=== PATIENT | female | born 1985 | race Caucasian/White ===

== ENCOUNTER 2016-12-10 21:15 | Emergency (ER) | payer OTHER ==
[2016-12-10 21:24] VITALS: BP 115/63; PULSE 72; TEMP 98.2; BMI 24.4
--- NOTE | 2016-12-10 22:00 | PDOC ---
History of Present Illness <Don Cruz - Last Filed: 12/10/16 23:21> - General History Source: Patient Exam Limitations: No Limitations - History of Present Illness Initial Comments: 12/10/16 23:46 The patient is a 31 year old female, with a significant past medical history of asthma, who presents to the emergency department with chest tightness since yesterday. She describes her chest pain as a tightness, ranging from mild to moderate, with a tingling radiation to her left arm. She notes that the pain is consistent with her asthma. She also reports wheezing and mild abdominal pain associated with her chief complaints. She denies cough, leg swelling, hemoptysis or exertional chest pain. She states that she came to the ED for evaluation in fear of a heart attack. The patient denies weakness, numbness, shortness of breath, headache and dizziness. Denies fever, chills, nausea, vomit, diarrhea and constipation. Denies dysuria, frequency, urgency and hematuria. Allergies: Penicillins Past surgical history: Gastric sleeve Social history: No alcohol, tobacco or drug use reported <Jose Guadalupe Cazares - Last Filed: 12/10/16 23:47> - General Chief Complaint: Asthma Stated Complaint: ASTHMA/SOB/LT ARM NUMB/CHEST PAIN Time Seen by Provider: 12/10/16 21:56 Past History - Past Medical History Anemia: No Asthma: Yes Cancer: No Cardiac Disorders: No CVA: No COPD: No CHF: No Dementia: No Diabetes: No GI Disorders: No Disorders: No HTN: No Hypercholesterolemia: No Liver Disease: No Seizures: No Thyroid Disease: No - Surgical History Abdominal Surgery: Yes Appendectomy: No Cardiac Surgery: No Cholecystectomy: No GI Surgery: Yes (GASTRIC SLEEVE) Lung Surgery: No Neurologic Surgery: No Orthopedic Surgery: No - Reproductive History Cervical CA: No Ectopic : No Polycystic Ovaries: No Spontaneous : 5 - Psycho/Social/Smoking Cessation Hx Anxiety: No Suicidal Ideation: No Smoking Status: No Smoking History: Never smoked Have you smoked in the past 12 months: No Number of Cigarettes Smoked Daily: 0 Hx Alcohol Use: No Drug/Substance Use Hx: No Substance Use Type: None Hx Substance Use Treatment: No <Don Cruz - Last Filed: 12/10/16 23:21> <Jose Guadalupe Cazares - Last Filed: 12/10/16 23:47> - Past Medical History Allergies/Adverse Reactions: Allergies Allergy/AdvReac Type Severity Reaction Status Date / Time shellfish derived Allergy Mild Verified 08/01/16 15:45 Penicillins Allergy Swelling Verified 08/01/16 15:45 Home Medications: Ambulatory Orders Montelukast Na [Singulair -] 10 mg PO HS 06/18/14 Ibuprofen [Motrin -] 800 mg PO TID #30 tablet 09/24/15 Tamsulosin HCl [Flomax] 0.4 mg PO DAILY #3 capsule 09/24/15 Prednisone [Deltasone -] 40 mg PO DAILY #8 tablet 12/10/16 Review of Systems - Review of Systems Able to Perform ROS?: Yes Comments:: 12/10/16 23:46 CONSTITUTIONAL: No reported: Fever, Chills, Diaphoresis, Generalized Weakness, Malaise, Loss of Appetite HEENT: No reported: Rhinorrhea, Nasal Congestion, Throat Pain, Throat Swelling, Difficulty Swallowing, Mouth Swelling, Ear Pain, Eye Pain, Visual Changes CARDIOVASCULAR: Reported: Chest pain. No reported: Syncope, Palpitations, Irregular Heart Rate, Lightheadedness, Peripheral Edema RESPIRATORY: Reported: Wheezing. No reported: Cough, Shortness of Breath, SOB with Exertion, Orthopnea, Stridor, Hemoptysis GASTROINTESTINAL: Reported: Abdominal pain. No reported: Abdominal Distension, Nausea, Vomiting, Diarrhea, Constipation, Melena, Hematochezia GENITOURINARY: No reported: Dysuria, Frequency, Urgency, Hesitancy, Flank Pain, Genital Pain MUSCULOSKELETAL: No reported: Myalgia, Arthralgia, Joint Swelling, Back pain, Neck Pain SKIN: No reported: Rash, Itching, Pallor HEMEATOLOGIC/IMMUNOLOGIC: No reported: Easy Bleeding, Easy Bruising, Lymphadenopathy, Frequent infections ENDOCRINE: No reported: Unexplained Weight Gain, Unexplained Weight Loss, Heat Intolerance , Cold Intolerance NEUROLOGIC: No reported: Headache, Focal Weakness, Paresthesias, Vertigo, Lightheadedness, Unsteady Gait, Seizure, Mental Status Changes, Incontinence PSYCHIATRIC: No reported: Anxiety, Depression <Jose Guadalupe Cazares - Last Filed: 12/10/16 23:47> *Physical Exam - Vital Signs Last Vital Signs Temp Pulse Resp BP Pulse Ox 98.2 F 72 20 115/63 97 12/10/16 21:22 12/10/16 21:22 12/10/16 21:22 12/10/16 21:22 12/10/16 21:22 <Don Cruz - Last Filed: 12/10/16 23:21> - Vital Signs Last Vital Signs Temp Pulse Resp BP Pulse Ox 98.2 F 72 20 115/63 97 12/10/16 21:22 12/10/16 21:22 12/10/16 21:22 12/10/16 21:22 12/10/16 21:22 - Physical Exam Comments: 12/10/16 23:46 GENERAL: The patient is awake, alert, and fully oriented, Nontoxic - in no acute distress. HEAD: Normocephalic, atraumatic. EYES: extraocular movements intact, sclera anicteric, conjunctiva clear. ENT: Normal voice, Moist mucous membranes. NECK: Normal range of motion, supple LUNGS: +Scattered wheezing s/p 1 neb in triage Breath sounds equal. HEART: Regular rate and rhythm, without murmur, rub or gallop. ABDOMEN: Soft, nontender, normoactive bowel sounds. No guarding, no rebound.No CVA tenderness EXTREMITIES: Normal range of motion, no edema. No clubbing or cyanosis. No cords, erythema, or tenderness. NEUROLOGICAL: No facial assymetry, Normal speech, PSYCH: Normal mood, normal affect. SKIN: Warm, Dry, normal turgor <Jose Guadalupe Cazares - Last Filed: 12/10/16 23:47> Heart Score/ECG Review - ECG Impressions Comment:: 12/10/16 22:14 Twelve-lead EKG was performed and reviewed by me. There is normal sinus rhythm with a normal rate. rate of 63 The axis is normal. The intervals are normal. There is normal R wave progression There are no ST or T wave abnormalities. Impression: Normal twelve-lead EKG <Don Cruz - Last Filed: 12/10/16 23:21> ED Treatment Course - LABORATORY CBC & Chemistry Diagram: 12/10/16 22:15 12/10/16 22:15 <Don Cruz - Last Filed: 12/10/16 23:21> - LABORATORY CBC & Chemistry Diagram: 12/10/16 22:15 12/10/16 22:15 - ADDITIONAL ORDERS Additional order review: Laboratory Results 12/10/16 12/10/16 22:15 22:15 Sodium 144 Potassium 3.5 D Chloride 108 H Carbon Dioxide 24 Anion Gap 12 BUN 11 Creatinine 0.8 D Creat Clearance w eGFR > 60 Random Glucose 104 D Calcium 8.5 Total Bilirubin 0.4 AST 15 D ALT 34 D Alkaline Phosphatase 97 D Total Protein 6.3 L Albumin 3.7 Serum , Qual Negative Urine Color Yellow Urine Appearance Clear Urine pH 5.0 Ur Specific [place] 1.029 Urine Protein 1+ H Urine Glucose (UA) Negative Urine Ketones Trace H Urine Blood 3+ H Urine Nitrite Negative Urine Bilirubin Negative Urine Urobilinogen Negative Ur Leukocyte Esterase 1+ H Urine RBC 34 Urine WBC 2 Ur Epithelial Cells Rare Urine Mucus Many 12/10/16 22:15 RBC 4.25 MCV 92.3 MCHC 33.8 RDW 13.3 MPV 8.0 D Neutrophils % 63.0 Lymphocytes % 23.5 Monocytes % 6.6 Eosinophils % 6.4 H Basophils % 0.5 - Medications Given in the ED: ED Medications Discontinued Medications Generic Name Dose Route Start Last Admin Trade Name Freq PRN Reason Stop Dose Admin Albuterol/Ipratropium 1 amp 12/10/16 22:10 12/10/16 22:27 Duoneb - NEB 12/10/16 22:11 1 amp ONCE ONE Administration Prednisone 60 mg 12/10/16 22:10 12/10/16 22:27 Deltasone - PO 12/10/16 22:11 60 mg ONCE ONE Administration <Jose Guadalupe Cazares - Last Filed: 12/10/16 23:47> Medical Decision Making - Medical Decision Making 12/10/16 22:15 31y F hx of asthma presents with chest tighness/wheezing sincee last night, now presents wiht some tingling in her finger tips - pt concerned about RI - on exam pts exam unremarkable suspect possible anxity/hyperventilization/hypercalcemia scattered wheezing on exam sp neb from triage will give another neb here ekg is non ischemic will ck labs to r/o anemia/metabolic derangement A portion of this note was documented by scribe services under my direction. I have reviewed the details of the note, within reason, and agree with the documentation with the following case summary and management plan written by me 12/10/16 23:21 labs reviewed urremarakbble pt feeling improved will dc with pmd fu and course of steroids return precautions were discussed I discussed the physical exam findings, ancillary test results and final diagnoses with the patient. I answered all of the patient's questions. The patient was satisfied with the care received and felt comfortable with the discharge plan and treatment plan. The patient will call their primary care physician within 24 hours to arrange follow-up and will return to the Emergency Department with any new, persistent or worsening symptoms. <Don Cruz - Last Filed: 12/10/16 23:21> *DC/Admit/Observation/Transfer - Discharge Dispostion Admit: No <Don Cruz - Last Filed: 12/10/16 23:21> - Attestations Scribe Attestion: 12/10/16 23:46 Documentation prepared by Jose Guadalupe Cazares, acting as medical billing coordinator for Don Cruz MD <Jose Guadalupe Cazares - Last Filed: 12/10/16 23:47> Diagnosis at time of Disposition: Asthma attack - Discharge Dispostion Disposition: HOME - Prescriptions Prescriptions: Prednisone [Deltasone -] 40 mg PO DAILY #8 tablet - Referrals Referrals: Jaime Finch [Primary Care Provider] - - Patient Instructions Printed Discharge Instructions: Asthma -- Adult Additional Instructions: Return to the emergency department immediately with ANY new, persistent or worsening symptoms. You MUST call and follow up with your doctor tomorrow for further evaluation of your symptoms. Results were discussed with you. Please make sure your doctor reviews the results of your emergency evaluation. If you had any xrays during your visit, it was read preliminarily by myself, a Radiologist will review it and if there are any additional findings we will call you.
[2016-12-10] MEDS ORDERED: ALBUTEROL SO4 2.5/IPRATROPIUM 0.5 INH SOL 3 ML VIAL.NEB. NEB ONE ×2 (22:10→22:21)
[2016-12-10] MEDS ORDERED: predniSONE 20 MG TABLET (UD) PO ONE (22:10)
[2016-12-10] MEDS ORDERED: predniSONE 20 MG TABLET (UD) ONE (22:21)
[2016-12-10 22:22] LABS: BASOPHIL 0.5 % (0-2.0); EOSINOPHIL 6.4 % (0-4.5); MCH 31.2 pg (25.7-33.7); MCHC 33.8 g/dl (32.0-36.0); MEAN CELL VOLUME 92.3 fl (80-96); PLATELET COUNT 183 K/MM3 (134-434); RDW 13.3 % (11.6-15.6); WHITE BLOOD COUNT 4.3 K/mm3 (4.0-10.0)
[2016-12-10 22:32] LABS: URINE APPEARANCE CLEAR; URINE BILIRUBIN NEGATIVE (NEGATIVE); URINE COLOR YELLOW; URINE GLUCOSE (UA) NEGATIVE (NEGATIVE); URINE KETONE TRACE (NEGATIVE); URINE NITRITE NEGATIVE (NEGATIVE); URINE UROBILINOGEN NEGATIVE E.U./dl (0.2-1.0)
[2016-12-10 22:33] LABS: URINE BLOOD 3+ (NEGATIVE); URINE LEUK ESTERASE 1+ (NEGATIVE); URINE PROTEIN 1+ (NEGATIVE)
[2016-12-10 22:36] LABS: URINE MUCUS MANY; URINE RBC 34 /hpf (0-3); URINE WBC 2 /hpf (3-5)
[2016-12-10 22:44] LABS: ALBUMIN 3.7 g/dl (3.4-5.0); ALK PHOS 97 U/L (45-117); ANION GAP 12 (8-16); BILIRUBIN,TOTAL 0.4 mg/dL (0.2-1.0); CALCIUM 8.5 mg/dL (8.5-10.1); CO2 24 mmol/L (21-32); CREATININE 0.8 mg/dL (0.55-1.02); GLUCOSE,RANDOM 104 mg/dL (74-106); SGOT/AST 15 U/L (15-37); SGPT/ALT 34 U/L (12-78); TOT PROT 6.3 g/dl (6.4-8.2)
--- NOTE | 2016-12-11 11:23 | EKG ---
Test Reason : Blood Pressure : / mmHG Vent. Rate : 063 BPM Atrial Rate : 063 BPM P-R Int : 118 ms QRS Dur : 096 ms QT Int : 396 ms P-R-T Axes : 028 061 041 degrees QTc Int : 405 ms NORMAL SINUS RHYTHM NORMAL ECG NO PREVIOUS ECGS AVAILABLE Confirmed by RENARD DIAZ MD ([id number]) on 12/11/2016 11:23:36 AM Referred By: Confirmed By:RENARD DIAZ MD
== END 2016-12-10 23:37 | disposition home or self-care (01) ==
LOC: JER 21:15
PROC: 3E0F7GC Introduction of Other Therapeutic Substance into Respiratory Tract, Via Natural or Artificial Opening (ICD-10-PCS; principal; 2016-12-10)
DX: J45.901 Unspecified asthma with (acute) exacerbation (principal)
CPT/HCPCS: 36415; 80053; 81003; 81015; 84703; 85025; 93005; 93010; 94640; 99281-25

== ENCOUNTER 2017-02-21 23:02 | Emergency (ER) | payer OTHER ==
[2017-02-21 23:07] VITALS: BP 112/60; PULSE 72; TEMP 97.7; BMI 23.0
[2017-02-21] MEDS ORDERED: ACETAMINOPHEN 325 MG TABLET (FP) PO ONE (23:45)
[2017-02-21] MEDS ORDERED: DOXYCYCLINE HYCLATE 100 MG CAPSULE PO ONE ×3 (23:45→23:57)
[2017-02-21] MEDS ORDERED: diphenhydrAMINE HCL 25 MG CAPSULE (FP) PO ONE ×2 (23:45→23:47)
--- NOTE | 2017-02-21 23:52 | PDOC ---
History of Present Illness - General History Source: Patient Exam Limitations: No Limitations <Roberto Chan - Last Filed: 02/21/17 23:52> - General History Source: Patient Exam Limitations: No Limitations - History of Present Illness Initial Comments: 02/21/17 23:52 The patient is a 32 year old female, with a significant past medical history of asthma, who presents to the emergency department with a tick bite to her buttocks that occurred today. She reports that she was at the [facility] when she felt the bite and pulled off the tick. She is not aware of how that tick got on her. She reports some mild itchiness throughout her body. She denies any kind of pain. She denies taking any medication or applying any topical solution. She brought the tick to the ED and its intact with its head but . The patient denies chest pain, shortness of breath, headache and dizziness. Denies fever, chills, nausea, vomit, diarrhea and constipation. Denies dysuria, frequency, urgency and hematuria. Allergies: Penicillins Past surgical history: Gastric sleeve Social history: No alcohol, tobacco or drug use reported <Jose Guadalupe Cazares - Last Filed: 02/21/17 23:54> - General Chief Complaint: Bite Stated Complaint: BITE Time Seen by Provider: 02/21/17 23:28 Past History - Past Medical History Anemia: No Asthma: Yes Cancer: No Cardiac Disorders: No CVA: No COPD: No CHF: No Dementia: No Diabetes: No GI Disorders: No Disorders: No HTN: No Hypercholesterolemia: No Liver Disease: No Seizures: No Thyroid Disease: No - Surgical History Abdominal Surgery: Yes Appendectomy: No Cardiac Surgery: No Cholecystectomy: No GI Surgery: Yes (GASTRIC SLEEVE) Lung Surgery: No Neurologic Surgery: No Orthopedic Surgery: No - Reproductive History Cervical CA: No Ectopic : No Polycystic Ovaries: No Spontaneous : 5 - Psycho/Social/Smoking Cessation Hx Anxiety: No Suicidal Ideation: No Smoking Status: No Smoking History: Never smoked Have you smoked in the past 12 months: No Number of Cigarettes Smoked Daily: 0 Hx Alcohol Use: No Drug/Substance Use Hx: No Substance Use Type: None Hx Substance Use Treatment: No <Roberto Chan - Last Filed: 02/21/17 23:52> <Jose Guadalupe Cazares - Last Filed: 02/21/17 23:54> - Past Medical History Allergies/Adverse Reactions: Allergies Allergy/AdvReac Type Severity Reaction Status Date / Time shellfish derived Allergy Mild Verified 02/21/17 23:05 Penicillins Allergy Swelling Verified 02/21/17 23:05 Home Medications: Ambulatory Orders Montelukast Na [Singulair -] 10 mg PO HS 06/18/14 Albuterol Sulfate Inhaler - [Ventolin Hfa Inhaler -] 1 - 2 inh PO Q4H PRN Ibuprofen [Motrin -] 800 mg PO TID PRN 02/21/17 Review of Systems - Review of Systems Able to Perform ROS?: Yes Comments:: 02/21/17 23:52 GENERAL/CONSTITUTIONAL: No fever or chills. No weakness. HEAD, EYES, EARS, NOSE AND THROAT: No change in vision. No ear pain or discharge. No sore throat. CARDIOVASCULAR: No chest pain or shortness of breath RESPIRATORY: No cough, wheezing, or hemoptysis. GASTROINTESTINAL: No nausea, vomiting, diarrhea or constipation. GENITOURINARY: No dysuria, frequency, or change in urination. MUSCULOSKELETAL: No joint or muscle swelling or pain. No neck or back pain. SKIN: (+) Tick bite on buttocks. No rash NEUROLOGIC: No headache, vertigo, loss of consciousness, or change in strength/ sensation. ENDOCRINE: No increased thirst. No abnormal weight change HEMATOLOGIC/LYMPHATIC: No anemia, easy bleeding, or history of blood clots. ALLERGIC/IMMUNOLOGIC: No hives or skin allergy. <Jose Guadalupe Cazares - Last Filed: 02/21/17 23:54> *Physical Exam - Vital Signs Last Vital Signs Temp Pulse Resp BP Pulse Ox 97.7 F 72 16 112/60 99 02/21/17 23:05 02/21/17 23:05 02/21/17 23:05 02/21/17 23:05 02/21/17 23:05 <Roberto Chan - Last Filed: 02/21/17 23:52> - Vital Signs Last Vital Signs Temp Pulse Resp BP Pulse Ox 97.7 F 72 16 112/60 99 02/21/17 23:05 02/21/17 23:05 02/21/17 23:05 02/21/17 23:05 02/21/17 23:05 - Physical Exam Comments: 02/21/17 23:53 GENERAL: Awake, alert, and fully oriented, in no acute distress HEAD: No signs of trauma, normocephalic, atraumatic EYES: PERRLA, EOMI, sclera anicteric, conjunctiva clear ENT: Auricles normal inspection, hearing grossly normal, nares patent, oropharynx clear without exudates. Moist mucosa NECK: Normal ROM, supple, no lymphadenopathy, JVD, or masses LUNGS: No distress, speaks full sentences, clear to auscultation bilaterally HEART: Regular rate and rhythm, normal S1 and S2, no murmurs, rubs or gallops, peripheral pulses normal and equal bilaterally. ABDOMEN: Soft, nontender, normoactive bowel sounds. No guarding, no rebound. No masses EXTREMITIES: Normal inspection, Normal range of motion, no edema. No clubbing or cyanosis. NEUROLOGICAL: Cranial nerves II through XII grossly intact. Normal speech, normal gait, no focal sensorimotor deficits SKIN: Warm, Dry, normal turgor, no rashes or lesions noted. <Jose Guadalupe Cazares - Last Filed: 02/21/17 23:54> Medical Decision Making - Medical Decision Making 02/21/17 23:49 A portion of this note was documented by scribe services under my direction. I have reviewed the details of the note, within reason, and agree with the documentation with the following case summary and management plan written by me. Patient treated in the ED. Nursing notes are reviewed and incorporated into the medical decision-making. Vital signs reviewed. Peripheral IV access obtained by the nurse, laboratory studies are drawn and sent, reviewed and interpreted by myself. Vital Signs Temp Pulse Resp BP Pulse Ox 97.7 F 72 16 112/60 99 02/21/17 23:05 02/21/17 23:05 02/21/17 23:05 02/21/17 23:05 02/21/17 23:05 32-year-old female with history of asthma presents with tick bite. Patient noticed after her walk today that there was a tick on her buttock. She managed to pull the tick intact with thehead. She brought it to the ED. Take is intact with a head. No rash observed. We'll draw Lyme titers and give a single prophylactic dose of 200 mg doxycycline. I discussed the physical exam findings, ancillary test results and final diagnoses with the patient. I answered all of the patient's questions. The patient was satisfied with the care received and felt comfortable with the discharge plan and treatment plan. The patient will call their primary care physician within 24 hours to arrange follow-up and will return to the Emergency Department with any new, persistant or worsening symptoms. <Roberto Chan - Last Filed: 02/21/17 23:52> *DC/Admit/Observation/Transfer - Discharge Dispostion Admit: No <Roberto Chan - Last Filed: 02/21/17 23:52> - Attestations Scribe Attestion: 02/21/17 23:53 Documentation prepared by Jose Guadalupe Cazares, acting as medical laboratory assistant for Roberto Chan MD <Jose Guadalupe Cazares - Last Filed: 02/21/17 23:54> Diagnosis at time of Disposition: Tick bite Qualifiers: Encounter type: initial encounter Qualified Code(s): W57.XXXA - Bitten or stung by nonvenomous insect and other nonvenomous arthropods, initial encounter - Discharge Dispostion Disposition: HOME - Patient Instructions Printed Discharge Instructions: How to Remove a Tick Additional Instructions: You have received a single dose of doxycycline for lyme disease prevention. Please call back in the next several days at [phone] option 1 for the lyme titer results.
[2017-02-21] MEDS ORDERED: ACETAMINOPHEN 325 MG TABLET (FP) ONE (23:59)
== END 2017-02-22 00:04 | disposition home or self-care (01) ==
LOC: JER 23:02
DX: S30.860A Insect bite (nonvenomous) of lower back and pelvis, initial encounter (principal); W57.XXXA Bitten or stung by nonvenomous insect and other nonvenomous arthropods, initial encounter; Y93.01 Activity, walking, marching and hiking; Y92.828 Other wilderness area as the place of occurrence of the external cause
CPT/HCPCS: 36415; 86618; 99281-25

== ENCOUNTER 2017-08-31 22:46 | Emergency (ER) | payer OTHER ==
[2017-08-31 23:09] VITALS: BP 116/62; PULSE 100; TEMP 99.3; BMI 26.9
--- NOTE | 2017-08-31 23:49 | PDOC ---
History of Present Illness - General Chief Complaint: Respiratory Stated Complaint: CHEST PAIN History Source: Patient Exam Limitations: No Limitations - History of Present Illness Initial Comments: 08/31/17 23:48 32 yo h/o asthma c/o f/c, generalized malaise x3d without nausea/vomiting, headaches, dizziness, lightheadedness, facial pain, nasal congestion, rhinorrhea , cough, sore throat, earaches, neck pain/stiffness, back pains, chest pain, shortness of breath, abdominal pains, flank pains, urinary symptoms. Patient states she is able to eat and drink without any difficulty but feels exhausted when she has a fever. Patient's been taken Tylenol with relief. Past History - Past Medical History Allergies/Adverse Reactions: Allergies Allergy/AdvReac Type Severity Reaction Status Date / Time shellfish derived Allergy Mild Verified 09/01/17 01:41 Penicillins Allergy Swelling Verified 09/01/17 01:41 Home Medications: Ambulatory Orders Montelukast Na [Singulair -] 10 mg PO HS 06/18/14 Albuterol Sulfate Inhaler - [Ventolin Hfa Inhaler -] 1 - 2 inh PO Q4H PRN Ibuprofen [Motrin -] 800 mg PO TID PRN 02/21/17 Anemia: No Asthma: Yes Cancer: No Cardiac Disorders: No CVA: No COPD: No CHF: No Dementia: No Diabetes: No GI Disorders: No Disorders: No HTN: No Hypercholesterolemia: No Liver Disease: No Seizures: No Thyroid Disease: No - Surgical History Abdominal Surgery: Yes Appendectomy: No Cardiac Surgery: No Cholecystectomy: No GI Surgery: Yes (GASTRIC SLEEVE) Lung Surgery: No Neurologic Surgery: No Orthopedic Surgery: No - Reproductive History Cervical CA: No Ectopic : No Polycystic Ovaries: No Spontaneous : 5 - Suicide/Smoking/Psychosocial Hx Smoking Status: No Smoking History: Never smoked Have you smoked in the past 12 months: No Number of Cigarettes Smoked Daily: 0 Hx Alcohol Use: No Drug/Substance Use Hx: No Substance Use Type: None Hx Substance Use Treatment: No Review of Systems - Review of Systems Able to Perform ROS?: Yes Comments:: 09/01/17 00:26 CONSTITUTIONAL: +Fever/chills, generalized malaise Absent: diaphoresis, malaise, loss of appetite HEENT: Absent: rhinorrhea, nasal congestion, throat pain, throat swelling, difficulty swallowing, mouth swelling, ear pain, eye pain, visual Changes CARDIOVASCULAR: Absent: chest pain, loss of consciousness, palpitations, irregular heart rate, peripheral edema RESPIRATORY: Absent: cough, shortness of breath, dyspnea with exertion, orthopnea, wheezing, stridor, hemoptysis GASTROINTESTINAL: Absent: abdominal pain, abdominal distension, nausea, vomiting, diarrhea, constipation, melena, hematochezia GENITOURINARY: Absent: dysuria, frequency, urgency, hesitancy, hematuria, flank pain, genital pain MUSCULOSKELETAL: Absent: myalgia, arthralgia, joint swelling SKIN: Absent: rash, itching, pallor HEMATOLOGIC/IMMUNOLOGIC: Absent: easy bleeding, easy bruising, lymphadenopathy, frequent infections ENDOCRINE: Absent: unexplained weight gain, unexplained weight loss, heat intolerance, cold intolerance NEUROLOGIC: Absent: headache, focal weakness or paresthesias, dizziness, unsteady gait, seizure, mental status changes, bladder or bowel incontinence PSYCHIATRIC: Absent: anxiety, depression, suicidal or homicidal ideation, hallucinations. Is the patient limited Filipino proficient: No *Physical Exam - Vital Signs Last Vital Signs Temp Pulse Resp BP Pulse Ox 99.3 F 100 H 20 116/62 99 08/31/17 23:05 08/31/17 23:05 08/31/17 23:05 08/31/17 23:05 08/31/17 23:05 - Physical Exam Comments: 09/01/17 00:27 GENERAL: Well developed, well nourished. Awake and alert. No acute distress. HEENT: Normocephalic, atraumatic. PERRLA, EOMI. No conjunctival pallor. Sclera are non- icteric. Moist mucous membranes. Oropharynx is clear. NECK: Supple. Full ROM. No JVD. Carotid pulses 2+ and symmetric, without bruits. No thyromegaly. No lymphadenopathy. CARDIOVASCULAR: Regular rate and rhythm. No murmurs, rubs, or gallops. Distal pulses are 2+ and symmetric. PULMONARY: No evidence of respiratory distress. Lungs clear to auscultation bilaterally. No wheezing, rales or rhonchi. ABDOMINAL: Soft. Non-tender. Non-distended. No rebound or guarding. No organomegaly. Normoactive bowel sounds. MUSCULOSKELETAL Normal range of motion at all joints. No bony deformities or tenderness. No CVA tenderness. EXTREMITIES: No cyanosis. No clubbing. No edema. No calf tenderness. SKIN: Warm and dry. Normal capillary refill. No rashes. No jaundice. NEUROLOGICAL: Alert, awake, appropriate. Cranial nerves 2-12 intact. No deficits to light touch and temperature in face, upper extremities and lower extremities. No motor deficits in the in face, upper extremities and lower extremities. Normoreflexic in the upper and lower extremities. Normal speech. Toes are down- going bilaterally. Gait is normal without ataxia. PSYCHIATRIC: Cooperative. Good eye contact. Appropriate mood and affect. *DC/Admit/Observation/Transfer Diagnosis at time of Disposition: Viral syndrome - Discharge Dispostion Disposition: HOME Condition at time of disposition: Stable Admit: No - Referrals Referrals: Jaime Finch [Primary Care Provider] - - Patient Instructions Printed Discharge Instructions: DI for Viral Syndrome Additional Instructions: Take Tylenol or Motrin as needed for pain or fever Rest Increase fluids Follow up with your physician within 48 hours Return back to the emergency department for severe/persistent or worsening symptoms - Post Discharge Activity
[2017-09-01] MEDS ORDERED: SODIUM CHLORIDE 1,000 ML IV STA (00:53)
--- NOTE | 2017-09-10 12:43 | EKG ---
Test Reason : Blood Pressure : / mmHG Vent. Rate : 098 BPM Atrial Rate : 098 BPM P-R Int : 130 ms QRS Dur : 090 ms QT Int : 338 ms P-R-T Axes : 043 035 027 degrees QTc Int : 431 ms NORMAL SINUS RHYTHM NONSPECIFIC ST ABNORMALITY ABNORMAL ECG WHEN COMPARED WITH ECG OF 10-DEC-2016 21:34, VENT. RATE HAS INCREASED BY 35 BPM Confirmed by FRANK HURTADO MD ([id number]) on 09/10/2017 12:42:54 PM Referred By: Confirmed By:FRANK HURTADO MD
== END 2017-09-01 03:15 | disposition home or self-care (01) ==
LOC: JER 22:46
PROC: 3E0337Z Introduction of Electrolytic and Water Balance Substance into Peripheral Vein, Percutaneous Approach (ICD-10-PCS; principal; 2017-08-31)
DX: B34.9 Viral infection, unspecified (principal)
CPT/HCPCS: 87804; 93005; 93010; 96360; 99282-25

== ENCOUNTER 2017-09-17 20:34 | Emergency (ER) | payer OTHER ==
--- NOTE | 2017-09-17 20:46 | PDOC ---
Rapid Medical Evaluation Chief Complaint: Respiratory Time Seen by Provider: 09/17/17 20:44 Medical Evaluation: Allergies Allergy/AdvReac Type Severity Reaction Status Date / Time shellfish derived Allergy Mild Verified 09/17/17 20:42 Penicillins Allergy Swelling Verified 09/17/17 20:42 09/17/17 20:45 I performed a brief in-person evaluation of this patient. This patient presents with a chief complaint of shortness of breath and chest tightness, states worse when laying flat. Reports history of asthma uses her albuterol and advair. Denies fever or chills Pertinent physical exam findings: NAD lungs with expiratory wheezing non tender chest heart s1s2 I have ordered the following: chest xray The patient will proceed to the ED for further evaluation. Discharge Disposition - Referrals Referrals: Jaime Finch [Primary Care Provider] - - Patient Instructions - Post Discharge Activity
[2017-09-17 20:48] VITALS: BP 116/72; PULSE 84; TEMP 98.3; BMI 24.7
[2017-09-17] MEDS ORDERED: ALBUTEROL SO4 2.5/IPRATROPIUM 0.5 INH SOL 3 ML VIAL.NEB. NEB ONE (21:54)
--- NOTE | 2017-09-17 21:54 | PDOC ---
History of Present Illness - General History Source: Patient Exam Limitations: No Limitations - History of Present Illness Initial Comments: 09/17/17 22:14 The patient is a 32 year old female, with a significant past medical history of asthma, who presents to the emergency department with, shortness of breath when sleeping, discomfort when breathing, and orthopnea. She reports this to occur every night. She discomfort when breathing as a tightness. She also reports using her inhaler 7 times a day. She can speak in full sentences without gasping. She denies recent fevers, chills, headache or dizziness. She denies recent nausea, vomit, diarrhea or constipation. She denies recent dysuria, frequency, urgency or hematuria. She denies recent chest pain. Allergies: Shell derived, Penicillin. Past surgical history: None reported. Social history: Nonsmoker. Denies EtOH use and recreational drug use. Primary Care Physician: Dr. Jaime Finch <Evon Brock - Last Filed: 09/17/17 22:14> <Marissa Spencer - Last Filed: 09/17/17 23:08> - General Chief Complaint: Respiratory Stated Complaint: SOB Time Seen by Provider: 09/17/17 20:44 Past History <Evon Brock - Last Filed: 09/17/17 22:14> - Past Medical History Anemia: No Asthma: Yes Cancer: No Cardiac Disorders: No CVA: No COPD: No CHF: No Dementia: No Diabetes: No GI Disorders: No Disorders: No HTN: No Hypercholesterolemia: No Liver Disease: No Seizures: No Thyroid Disease: No - Surgical History Abdominal Surgery: Yes Appendectomy: No Cardiac Surgery: No Cholecystectomy: No GI Surgery: Yes (GASTRIC SLEEVE) Lung Surgery: No Neurologic Surgery: No Orthopedic Surgery: No - Reproductive History Cervical CA: No Ectopic : No Polycystic Ovaries: No Spontaneous : 5 - Immunization History Immunization Up to Date: Yes - Suicide/Smoking/Psychosocial Hx Smoking Status: No Smoking History: Never smoked Have you smoked in the past 12 months: No Number of Cigarettes Smoked Daily: 0 Hx Alcohol Use: No Drug/Substance Use Hx: No Substance Use Type: None Hx Substance Use Treatment: No <Marissa Spencer - Last Filed: 09/17/17 23:08> - Past Medical History Allergies/Adverse Reactions: Allergies Allergy/AdvReac Type Severity Reaction Status Date / Time shellfish derived Allergy Mild Verified 09/17/17 20:42 Penicillins Allergy Swelling Verified 09/17/17 20:42 Home Medications: Ambulatory Orders Montelukast Na [Singulair -] 10 mg PO HS 06/18/14 Albuterol Sulfate Inhaler - [Ventolin Hfa Inhaler -] 1 - 2 inh PO Q4H PRN Ibuprofen [Motrin -] 800 mg PO TID PRN 02/21/17 Albuterol 0.083% Nebulizer Aileen [Ventolin 0.083% Nebulizer Soln -] 1 neb NEB Q4H #20 vial 09/17/17 Azithromycin [Zithromax 250mg Tablets -] 250 mg PO UTDICT #6 tab 09/17/17 Prednisone [Deltasone -] 40 mg PO DAILY #8 tablet 09/17/17 Review of Systems - Review of Systems Able to Perform ROS?: Yes Comments:: 09/17/17 22:14 CONSTITUTIONAL: Absent: fever, no chills, no fatigue EYES: Absent: visual changes ENT: Absent: ear pain, no sore throat CARDIOVASCULAR: Absent: chest pain, no palpitations RESPIRATORY: Present: +SOB when sleeping. +Orthopnea. +Discomfort when breathing. Absent: cough, no SOB GI: Absent: abdominal pain, no nausea, no vomiting, no constipation, no diarrhea GENITOURINARY: Absent: dysuria, no frequency, no hematuria MUSKULOSKELETAL: Absent: back pain, no arthralgia, no myalgia SKIN: Absent: rash NEURO: Absent: headache All Other Systems: Reviewed and Negative <Evon Brock - Last Filed: 09/17/17 22:14> *Physical Exam - Vital Signs Last Vital Signs Temp Pulse Resp BP Pulse Ox 98.3 F 84 18 116/72 96 09/17/17 20:40 09/17/17 20:40 09/17/17 20:40 09/17/17 20:40 09/17/17 20:40 - Physical Exam Comments: 09/17/17 22:15 GENERAL: Well-appearing, well-nourished. No apparent distress. HEENT: Normocephalic, atraumatic. PERRL, EOM intact. CARDIOVASCULAR: Normal S1, S2. Regular rate and rhythm. PULMONARY: +Bilateral expiratory wheezing with fair aeration to bases. ABDOMEN: Soft, non-distended, non-tender. EXTREMITIES: Normal ROM in all four extremities. No gross deformities. SKIN: Warm, dry. No rash NEUROLOGICAL: No focal neurological deficits. <Evon Brock - Last Filed: 09/17/17 22:14> - Vital Signs Last Vital Signs Temp Pulse Resp BP Pulse Ox 98.3 F 84 18 116/72 96 09/17/17 20:40 09/17/17 20:40 09/17/17 20:40 09/17/17 20:40 09/17/17 20:40 <Marissa Spencer - Last Filed: 09/17/17 23:08> ED Treatment Course - Medications Given in the ED: ED Medications Discontinued Medications Generic Name Dose Route Start Last Admin Trade Name Freq PRN Reason Stop Dose Admin Albuterol/Ipratropium 1 amp 09/17/17 21:54 09/17/17 22:01 Duoneb - NEB 09/17/17 21:55 1 amp ONCE ONE Administration Prednisone 40 mg 09/17/17 21:55 09/17/17 22:01 Deltasone - PO 09/17/17 21:56 40 mg ONCE ONE Administration <vEon Brock - Last Filed: 09/17/17 22:14> Medical Decision Making - Medical Decision Making 09/17/17 22:35 A portion of this note was documented by scribe services under my direction. I have reviewed the details of the note, within reason, and agree with the documentation with the following case summary and management plan written by me. Pt. is a 32 y/o F with PMH of asthma on multiple medications who presents to the ED with shortness of breath. Pt speaking in full sentances; not using accessory muscles to breathe. CXR done by E shows no acute cardiopulmonary pathology. Given pt report of waking up at night short of breath, recommending a adjunct instructor chemistry at this time as pt needs evaluation of her asthma. Lung exam with scattered wheezing. Sat'ing 96% ORA. Will give duoneb and steroids. 09/17/17 23:01 Repeat lung exam with improvement of wheezing. Better aeration to bases. 98% ORA Will d/c home at this time with steroids, a z-pac and albuterol. Referral for pulmonology given <BoubacarwendyMarissa - Last Filed: 09/17/17 23:08> *DC/Admit/Observation/Transfer - Attestations Scribe Attestion: 09/17/17 22:15 Documentation prepared by Evon Brock, acting as medical collections representative for Bryson Huffman MD. <Evon Brock - Last Filed: 09/17/17 22:14> - Discharge Dispostion Admit: No <TjMarissa - Last Filed: 09/17/17 23:08> Diagnosis at time of Disposition: Asthma exacerbation Qualifiers: Asthma severity: mild Asthma persistence: unspecified Qualified Code(s): J45.901 - Unspecified asthma with (acute) exacerbation - Discharge Dispostion Disposition: HOME Condition at time of disposition: Stable - Prescriptions Prescriptions: Albuterol 0.083% Nebulizer Aileen [Ventolin 0.083% Nebulizer Soln -] 1 neb NEB Q4H #20 vial Azithromycin [Zithromax 250mg Tablets -] 250 mg PO UTDICT #6 tab Prednisone [Deltasone -] 40 mg PO DAILY #8 tablet - Referrals Referrals: Jaime Finch [Primary Care Provider] - Randal Kennedy MD, MD [Staff Physician] - - Patient Instructions Printed Discharge Instructions: DI for Asthma -- Adult Additional Instructions: You had a flare of her asthma. Please take all your home medications as prescribed. In addition please take the Z-Diony as directed. Also take the steroids that were prescribed to you. Follow the dosing on the bottle. Please use her nebulizer at home every 4 hours while you are awake. Please follow up with her primary care doctor. Your also prescribed a referral for a adjunct instructor chemistry. It is important that you be evaluated by a adjunct instructor chemistry given that you were having frequent exacerbations. Return to the emergency department if you have difficulty breathing, shortness of breath, fevers, or any changes in her symptoms. - Post Discharge Activity Forms/Work/School Notes: Back to Work
[2017-09-17] MEDS ORDERED: predniSONE 20 MG TABLET (UD) PO ONE (21:55)
[2017-09-17] MEDS ORDERED: predniSONE 20 MG TABLET (UD) ONE (21:56)
== END 2017-09-17 22:25 | disposition home or self-care (01) ==
LOC: JER 20:34 → JERFT 20:34
PROC: 3E0F7GC Introduction of Other Therapeutic Substance into Respiratory Tract, Via Natural or Artificial Opening (ICD-10-PCS; principal; 2017-09-17)
DX: J45.901 Unspecified asthma with (acute) exacerbation (principal)
CPT/HCPCS: 71046-TC; 94640; 99281-25

== ENCOUNTER 2017-10-18 15:37 | Emergency (ER) | payer OTHER ==
[2017-10-18] MEDS ORDERED: ALBUTEROL SO4 2.5/IPRATROPIUM 0.5 INH SOL 3 ML VIAL.NEB. NEB ONE ×5 (16:29→17:46)
--- NOTE | 2017-10-18 16:29 | PDOC ---
Rapid Medical Evaluation Time Seen by Provider: 10/18/17 16:26 Medical Evaluation: Allergies Allergy/AdvReac Type Severity Reaction Status Date / Time shellfish derived Allergy Mild Verified 09/17/17 20:42 Penicillins Allergy Swelling Verified 09/17/17 20:42 10/18/17 16:28 pt c/o: cough, sneezing, body aches and asthma exac Pt on brief exam: wheezing conner on expiration Pt ordered for : winnie pt to proceed to the ED: Discharge Disposition - Diagnosis Asthma - Referrals - Patient Instructions - Post Discharge Activity
[2017-10-18 16:43] VITALS: BP 115/77; PULSE 73; TEMP 98; BMI 26.5
[2017-10-18] MEDS ORDERED: predniSONE 20 MG TABLET (UD) PO ONE (17:04)
[2017-10-18] MEDS ORDERED: predniSONE 20 MG TABLET (UD) ONE (17:07)
--- NOTE | 2017-10-18 17:11 | PDOC ---
History of Present Illness - General Chief Complaint: Cold Symptoms Stated Complaint: THROAT PAIN Time Seen by Provider: 10/18/17 16:26 History Source: Patient Exam Limitations: No Limitations - History of Present Illness Initial Comments: 10/18/17 17:05 32 yr female history of asthma with cough wheezing body aches for 3 days. Pt's daughter with influenza at home. Pt has no history of intubations, uses nebulizer at home. Severity: reports: moderate Possible Cause: Yes: frequent episodes Past History - Past Medical History Allergies/Adverse Reactions: Allergies Allergy/AdvReac Type Severity Reaction Status Date / Time shellfish derived Allergy Mild Verified 09/17/17 20:42 Penicillins Allergy Swelling Verified 09/17/17 20:42 Home Medications: Ambulatory Orders Albuterol Sulfate Inhaler - [Ventolin Hfa Inhaler -] 1 - 2 inh PO Q4H PRN Albuterol 0.083% Nebulizer Aileen [Ventolin 0.083% Nebulizer Soln -] 1 neb NEB Q4H #20 vial 09/17/17 Oseltamivir Phosphate [Tamiflu] 75 mg PO BID #10 capsule 10/18/17 Prednisone [Deltasone] 40 mg PO DAILY #10 tablet 10/18/17 Salmeterol/Fluticasone [Advair 250Mcg/50Mcg -] 1 inh IH BID #1 inh 10/18/17 Anemia: No Asthma: Yes Cancer: No Cardiac Disorders: No CVA: No COPD: No CHF: No Dementia: No Diabetes: No GI Disorders: No Disorders: No HTN: No Hypercholesterolemia: No Liver Disease: No Seizures: No Thyroid Disease: No - Surgical History Abdominal Surgery: Yes Appendectomy: No Cardiac Surgery: No Cholecystectomy: No GI Surgery: Yes (GASTRIC SLEEVE) Lung Surgery: No Neurologic Surgery: No Orthopedic Surgery: No - Reproductive History Cervical CA: No Ectopic : No Polycystic Ovaries: No Spontaneous : 5 - Immunization History Immunization Up to Date: Yes - Suicide/Smoking/Psychosocial Hx Smoking Status: No Smoking History: Never smoked Have you smoked in the past 12 months: No Number of Cigarettes Smoked Daily: 0 Information on smoking cessation initiated: No Hx Alcohol Use: No Drug/Substance Use Hx: No Substance Use Type: None Hx Substance Use Treatment: No Respiratory Specific PMHX - Complaint Specific PMHX Bronchitis: Yes Review of Systems - Review of Systems Able to Perform ROS?: Yes Is the patient limited Frisian proficient: No Constitutional: No: Symptoms Reported HEENTM: No: Symptoms Reported Respiratory: Yes: Symptoms reported, Cough Cardiac (ROS): No: Symptoms Reported ABD/GI: No: Symptoms Reported : No: Symptoms Reported Musculoskeletal: No: Symptoms Reported Integumentary: No: Symptoms Reported Neurological: No: Symptoms reported *Physical Exam - Vital Signs Last Vital Signs Temp Pulse Resp BP Pulse Ox 98.0 F 73 18 115/77 100 10/18/17 16:27 10/18/17 16:27 10/18/17 16:27 10/18/17 16:27 10/18/17 16:27 - Physical Exam General Appearance: Yes: Nourished, Appropriately Dressed HEENT: positive: EOMI, ELSLIE, Normal ENT Inspection, TMs Normal, Pharynx Normal Neck: positive: Supple. negative: Tender Respiratory/Chest: positive: Normal Breath Sounds, Wheezing. negative: Chest Tender Cardiovascular: positive: Regular Rhythm, Regular Rate Gastrointestinal/Abdominal: positive: Normal Bowel Sounds, Soft Musculoskeletal: positive: Normal Inspection Extremity: positive: Normal Inspection, Normal Range of Motion Integumentary: positive: Normal Color, Dry, Warm ED Treatment Course - Medications Given in the ED: ED Medications Discontinued Medications Generic Name Dose Route Start Last Admin Trade Name Roshan PRN Reason Stop Dose Admin Albuterol/Ipratropium 1 amp 10/18/17 16:29 10/18/17 16:30 Duoneb - NEB 10/18/17 16:30 1 amp ONCE ONE Administration Medical Decision Making - Medical Decision Making 10/18/17 17:13 cc: wheezing cough for 2 days body aches no fever daughter at home with influenza will give nebulizers and prednisone 10/18/17 17:15 10/18/17 18:01 3 nebulizers given pt feels better wheezing has improved, will treat with tamiflu as pt has 2 sick children at home with the FLU will give prednisone pt has albuterol inhaler and nebulizers at home strict follow up with PMD return if worse *DC/Admit/Observation/Transfer Diagnosis at time of Disposition: Influenza-like illness Asthma Qualifiers: Asthma severity: mild Asthma persistence: intermittent Asthma complication type : with acute exacerbation Qualified Code(s): J45.21 - Mild intermittent asthma with (acute) exacerbation - Discharge Dispostion Disposition: HOME Condition at time of disposition: Good - Prescriptions Prescriptions: Oseltamivir Phosphate [Tamiflu] 75 mg PO BID #10 capsule Prednisone [Deltasone] 40 mg PO DAILY #10 tablet Salmeterol/Fluticasone [Advair 250Mcg/50Mcg -] 1 inh IH BID #1 inh - Referrals Referrals: Jaime Finch [Primary Care Provider] - - Patient Instructions Additional Instructions: drink pleanty of water next dose prednisone tomorrow use your inhaler every 4hrs start tamiflu as directed if it causes stomach upset, diarrhea vomiting stop taking it continue to wear your mask at home follow with your doctor in 1-3 days Return to ER for any worsening symptoms - Post Discharge Activity
== END 2017-10-18 18:06 | disposition home or self-care (01) ==
LOC: JER 15:37
PROC: 3E0F7GC Introduction of Other Therapeutic Substance into Respiratory Tract, Via Natural or Artificial Opening (ICD-10-PCS; principal; 2017-10-18)
PROC: 3E0F7GC Introduction of Other Therapeutic Substance into Respiratory Tract, Via Natural or Artificial Opening (ICD-10-PCS; 2017-10-18)
PROC: 3E0F7GC Introduction of Other Therapeutic Substance into Respiratory Tract, Via Natural or Artificial Opening (ICD-10-PCS; 2017-10-18)
DX: J11.1 Influenza due to unidentified influenza virus with other respiratory manifestations (principal); J45.21 Mild intermittent asthma with (acute) exacerbation
CPT/HCPCS: 99281-25

== ENCOUNTER 2017-11-20 08:44 | Emergency (ER) | payer OTHER ==
[2017-11-20 08:52] VITALS: BP 130/73; PULSE 99; TEMP 100.6; BMI 27.1
[2017-11-20] MEDS ORDERED: predniSONE 20 MG TABLET (UD) PO ONE (10:06)
[2017-11-20] MEDS ORDERED: ALBUTEROL SO4 2.5/IPRATROPIUM 0.5 INH SOL 3 ML VIAL.NEB. NEB ONE ×2 (10:07→10:18)
[2017-11-20] MEDS ORDERED: predniSONE 20 MG TABLET (UD) ONE (10:18)
[2017-11-20] MEDS ORDERED: ACETAMINOPHEN 500 MG TABLET (FP) PO ONE (10:22)
[2017-11-20] MEDS ORDERED: ACETAMINOPHEN 500 MG TABLET (FP) ONE (10:24)
--- NOTE | 2017-11-20 10:27 | PDOC ---
History of Present Illness - General Chief Complaint: Cold Symptoms Stated Complaint: SOB (ASTHMA), body aches Time Seen by Provider: 11/20/17 09:38 History Source: Patient Exam Limitations: No Limitations - History of Present Illness Initial Comments: 11/20/17 10:24 Patient is a 32-year-old female, had the flu 1 month ago, history of asthma, presents now with same symptoms headache, body aches, fever, cough. Patient reports that she has 6 children at home and one of her daughters was diagnosed with influenza B several days ago. Patient denies any chest pain or shortness of breath. Is complaining of wheezing reports being hospitalized in the past while she had influenza for complications with asthma. Past Medical History: Asthma, gastric sleeve Allergies: No known allergies Medications: [See medication list] Family History: Non-contributory Social History: Denies smoking, alcohol use, or IVDU Review of Systems GENERAL/CONSTITUTIONAL: [Fever, body aches, chills. No weakness. No weight change.] HEAD, EYES, EARS, NOSE AND THROAT: [No change in vision. No ear pain or discharge. No sore throat. ] CARDIOVASCULAR: [No chest pain or shortness of breath.] RESPIRATORY: [Moist cough, no wheezing, or hemoptysis.] GASTROINTESTINAL: [No nausea, vomiting, diarrhea or constipation. No rectal bleeding.] GENITOURINARY: [No dysuria, frequency, or change in urination.] MUSCULOSKELETAL: [No joint or muscle swelling or pain. No neck or back pain.] SKIN AND BREASTS: [No rash or easy bruising.] NEUROLOGIC: [Generalized headache, no vertigo, loss of consciousness, or loss of sensation.] PSYCHIATRIC: [No depression or anxiety.] ENDOCRINE: [No increased thirst. No abnormal weight change.] HEMATOLOGIC/LYMPHATIC: [No anemia, easy bleeding, or history of blood clots.] ALLERGIC/IMMUNOLOGIC: [No hives or skin allergy. No latex allergy.] Physical Exam: GENERAL: [The patient is awake, alert, and fully oriented, in no acute distress. ] HEAD: [Normal with no signs of trauma.] EYES: [Pupils equal, round and reactive to light, extraocular movements intact, sclera anicteric, conjunctiva clear.] ENT: [Ears normal, nares patent, oropharynx clear without exudates. Moist mucous membranes. No uvula deviation] NECK: [Normal range of motion, supple without lymphadenopathy, JVD, or masses.] LUNGS: [Breath sounds equal, bilateral expiratory wheezes, no crackles and no rhonchi] HEART: [Regular rate and rhythm, normal S1 and S2 without murmur, rub or gallop. ] ABDOMEN: [Soft, nontender, normoactive bowel sounds. No guarding, no rebound. No masses. No bruising or abrasions] MUSCULOSKELETAL: [Normal range of motion, no edema. No clubbing or cyanosis. No cords, erythema, or tenderness. No CVA Tenderness with fist.] NEUROLOGICAL: [Cranial nerves II through XII grossly intact. Normal speech, normal gait.] PSYCH: [Normal mood, normal affect.] SKIN: [Warm, Dry, normal turgor, no rashes or lesions noted.] 11/20/17 10:26 11/20/17 10:26 Past History - Past Medical History Allergies/Adverse Reactions: Allergies Allergy/AdvReac Type Severity Reaction Status Date / Time shellfish derived Allergy Mild Verified 11/20/17 08:51 Penicillins Allergy Swelling Verified 11/20/17 08:51 Home Medications: Ambulatory Orders Albuterol 0.083% Nebulizer Aileen [Ventolin 0.083% Nebulizer Soln -] 1 neb NEB Q4H #20 vial 09/17/17 Montelukast Na [Singulair -] 10 mg PO HS tablet 10/25/17 Prednisone 10 mg PO DAILY #30 tablet 10/25/17 Salmeterol/Fluticasone [Advair 500Mcg/50Mcg -] 1 inh PO BID #1 diskus 10/25/17 Albuterol Sulfate Inhaler - [Ventolin HFA Inhaler -] 1 - 2 inh PO Q4H PRN #1 inhaler 11/20/17 Azithromycin [Zithromax 250mg Tablets -] 250 mg PO UTDICT #6 tab 11/20/17 Oseltamivir Phosphate [Tamiflu -] 75 mg PO BID #10 capsule 11/20/17 Prednisone [Deltasone] 20 mg PO DAILY #5 tablet 11/20/17 Anemia: No Asthma: Yes Cancer: Yes (Cervical -on remission) Cardiac Disorders: No CVA: No COPD: No CHF: No Dementia: No Diabetes: No GI Disorders: No Disorders: No HTN: No Hypercholesterolemia: No Liver Disease: No Seizures: No Thyroid Disease: No - Surgical History Abdominal Surgery: Yes (gastric sleeve,leap) Appendectomy: No Cardiac Surgery: No Cholecystectomy: No GI Surgery: Yes (GASTRIC SLEEVE) Lung Surgery: No Neurologic Surgery: No Orthopedic Surgery: No - Reproductive History Cervical CA: No Ectopic : No Polycystic Ovaries: No Spontaneous : 5 - Immunization History Immunization Up to Date: Yes - Suicide/Smoking/Psychosocial Hx Smoking Status: No Smoking History: Never smoked Have you smoked in the past 12 months: No Number of Cigarettes Smoked Daily: 0 Information on smoking cessation initiated: No Hx Alcohol Use: No Drug/Substance Use Hx: No Substance Use Type: None Hx Substance Use Treatment: No *Physical Exam - Vital Signs Last Vital Signs Temp Pulse Resp BP Pulse Ox 100.6 F H 99 H 19 130/73 97 11/20/17 08:49 11/20/17 08:49 11/20/17 08:49 11/20/17 08:49 11/20/17 08:49 ED Treatment Course - Medications Given in the ED: ED Medications Discontinued Medications Generic Name Dose Route Start Last Admin Trade Name Freq PRN Reason Stop Dose Admin Albuterol/Ipratropium 1 amp 11/20/17 10:07 11/20/17 10:21 Duoneb - NEB 11/20/17 10:08 1 amp ONCE ONE Administration Prednisone 60 mg 11/20/17 10:06 11/20/17 10:21 Deltasone - PO 11/20/17 10:07 60 mg ONCE ONE Administration Medical Decision Making - Medical Decision Making 11/20/17 10:27 A/P: Patient with influenza-type illness, upper respiratory infection and asthma exacerbation Combivent given in ER, prednisone 60 mg for wheezing and Tylenol 1000 mg by mouth for headache. 11/20/17 10:55 Patient is influenza B+, will discharge patient on azithromycin, Tamiflu, prednisone for wheezing, URI in addition to influenza. Tylenol for headache. I discussed the physical exam findings, ancillary test results and final diagnoses with the patient. I answered all of the patient's questions. The patient was satisfied with the care received and felt comfortable with the discharge plan and treatment plan. The patient will call to arrange follow-up and will return to the Emergency Department with any new, persistent or worsening symptoms. *DC/Admit/Observation/Transfer Diagnosis at time of Disposition: Influenza B - Discharge Dispostion Disposition: HOME Condition at time of disposition: Stable Admit: No - Prescriptions Prescriptions: Albuterol Sulfate Inhaler - [Ventolin HFA Inhaler -] 1 - 2 inh PO Q4H PRN #1 inhaler PRN Reason: Short Of Breath/Wheezing Azithromycin [Zithromax 250mg Tablets -] 250 mg PO UTDICT #6 tab Oseltamivir Phosphate [Tamiflu -] 75 mg PO BID #10 capsule Prednisone [Deltasone] 20 mg PO DAILY #5 tablet - Referrals Referrals: Jaime Finch [Primary Care Provider] - - Patient Instructions Printed Discharge Instructions: Influenza Additional Instructions: You have been diagnosed with influenza b Please take the medication as directed. You are contagious. Please attempt to avoid contact of multiple individuals as this will cause the infection to spread. Return to emergency room if shortness of breath, wheezing, fever greater than 101, chest pain, or fainting occurs. - Post Discharge Activity Forms/Work/School Notes: Back to Work
== END 2017-11-20 11:02 | disposition home or self-care (01) ==
LOC: JERFT 08:44
PROC: 3E0F7GC Introduction of Other Therapeutic Substance into Respiratory Tract, Via Natural or Artificial Opening (ICD-10-PCS; principal; 2017-11-20)
DX: J10.1 Influenza due to other identified influenza virus with other respiratory manifestations (principal); Z85.41 Personal history of malignant neoplasm of cervix uteri
CPT/HCPCS: 87804; 99281-25

== ENCOUNTER 2018-09-19 17:33 | Emergency (ER) | payer OTHER ==
--- NOTE | 2018-09-19 17:43 | PDOC ---
Rapid Medical Evaluation Time Seen by Provider: 09/19/18 17:42 Medical Evaluation: Allergies Allergy/AdvReac Type Severity Reaction Status Date / Time shellfish derived Allergy Mild Verified 11/20/17 08:51 Penicillins Allergy Swelling Verified 11/20/17 08:51 09/19/18 17:42 I have performed a brief in-person evaluation of this patient. The patient presents with a chief complaint of: stabbing headaches for one week unrelieved by motrin, tylenol Pertinent physical exam findings: alert, oriented, no focal neurologic deficits I have ordered the following: Pgu The patient will proceed to the ED for further evaluation. Discharge Disposition - Diagnosis Headache Qualifiers: Headache type: unspecified Headache chronicity pattern: acute headache Intractability: not intractable Qualified Code(s): R51 - Headache - Referrals - Patient Instructions - Post Discharge Activity
[2018-09-19 17:47] VITALS: BP 107/58; PULSE 78; TEMP 98.6; BMI 28.2
--- NOTE | 2018-09-19 18:02 | PDOC ---
History of Present Illness - General Chief Complaint: Cold Symptoms Stated Complaint: HEADACHE Time Seen by Provider: 09/19/18 17:42 History Source: Patient Exam Limitations: No Limitations Past History - Travel Traveled outside of the country in the last 30 days: No Close contact w/someone who was outside of country & ill: No - Past Medical History Allergies/Adverse Reactions: Allergies Allergy/AdvReac Type Severity Reaction Status Date / Time shellfish derived Allergy Mild Verified 11/20/17 08:51 Penicillins Allergy Swelling Verified 11/20/17 08:51 Home Medications: Ambulatory Orders Montelukast Na [Singulair -] 10 mg PO HS tablet 10/25/17 Salmeterol/Fluticasone [Advair 500Mcg/50Mcg -] 1 inh PO BID #1 diskus 10/25/17 Albuterol Sulfate Inhaler - [Ventolin HFA Inhaler -] 1 - 2 inh PO Q4H PRN #1 inhaler 11/20/17 Acetaminophen/Caffeine/Butalb [Fioricet -] 1 tablet PO TID #10 tablet MDD 3 Anemia: No Asthma: Yes Cancer: Yes (Cervical -on remission) Cardiac Disorders: No CVA: No COPD: No CHF: No Dementia: No Diabetes: No GI Disorders: No Disorders: No HTN: No Hypercholesterolemia: No Liver Disease: No Seizures: No Thyroid Disease: No - Surgical History Abdominal Surgery: Yes (gastric sleeve,leap) Appendectomy: No Cardiac Surgery: No Cholecystectomy: No GI Surgery: Yes (GASTRIC SLEEVE) Lung Surgery: No Neurologic Surgery: No Orthopedic Surgery: No - Reproductive History Cervical CA: No Ectopic : No Polycystic Ovaries: No Spontaneous : 5 - Immunization History Immunization Up to Date: Yes - Suicide/Smoking/Psychosocial Hx Smoking Status: No Smoking History: Never smoked Have you smoked in the past 12 months: No Number of Cigarettes Smoked Daily: 0 Information on smoking cessation initiated: No Hx Alcohol Use: No Drug/Substance Use Hx: No Substance Use Type: None Hx Substance Use Treatment: No Review of Systems - Review of Systems Able to Perform ROS?: Yes Comments:: 09/19/18 19:13 CONSTITUTIONAL: Absent: fever, chills, diaphoresis, generalized weakness, malaise, loss of appetite HEENT: Absent: rhinorrhea, nasal congestion, throat pain, throat swelling, difficulty swallowing, mouth swelling, ear pain, eye pain, visual Changes CARDIOVASCULAR: Absent: chest pain, loss of consciousness, palpitations, irregular heart rate, peripheral edema RESPIRATORY: Absent: cough, shortness of breath, dyspnea with exertion, orthopnea, wheezing, stridor, hemoptysis GASTROINTESTINAL: Absent: abdominal pain, abdominal distension, nausea, vomiting, diarrhea, constipation, melena, hematochezia GENITOURINARY: Absent: dysuria, frequency, urgency, hesitancy, hematuria, flank pain, genital pain MUSCULOSKELETAL: Absent: myalgia, arthralgia, joint swelling SKIN: Absent: rash, itching, pallor HEMATOLOGIC/IMMUNOLOGIC: Absent: easy bleeding, easy bruising, lymphadenopathy, frequent infections ENDOCRINE: Absent: unexplained weight gain, unexplained weight loss, heat intolerance, cold intolerance NEUROLOGIC: Absent: headache, focal weakness or paresthesias, dizziness, unsteady gait, seizure, mental status changes, bladder or bowel incontinence PSYCHIATRIC: Absent: anxiety, depression, suicidal or homicidal ideation, hallucinations. *Physical Exam - Vital Signs Last Vital Signs Temp Pulse Resp BP Pulse Ox 98.6 F 78 18 107/58 L 98 09/19/18 17:44 09/19/18 17:44 09/19/18 17:44 09/19/18 17:44 09/19/18 17:44 - Physical Exam Comments: 09/19/18 19:13 GENERAL: Well developed, well nourished. Awake and alert. No acute distress. HEENT: Normocephalic, atraumatic. PERRLA, EOMI. No conjunctival pallor. Sclera are non- icteric. Moist mucous membranes. Oropharynx is clear. NECK: Supple. Full ROM. No JVD. Carotid pulses 2+ and symmetric, without bruits. No thyromegaly. No lymphadenopathy. CARDIOVASCULAR: Regular rate and rhythm. No murmurs, rubs, or gallops. Distal pulses are 2+ and symmetric. PULMONARY: No evidence of respiratory distress. Lungs clear to auscultation bilaterally. No wheezing, rales or rhonchi. ABDOMINAL: Soft. Non-tender. Non-distended. No rebound or guarding. No organomegaly. Normoactive bowel sounds. MUSCULOSKELETAL Normal range of motion at all joints. No bony deformities or tenderness. No CVA tenderness. EXTREMITIES: No cyanosis. No clubbing. No edema. No calf tenderness. SKIN: Warm and dry. Normal capillary refill. No rashes. No jaundice. NEUROLOGICAL: Alert, awake, appropriate. Cranial nerves 2-12 intact. No deficits to light touch and temperature in face, upper extremities and lower extremities. No motor deficits in the in face, upper extremities and lower extremities. Normoreflexic in the upper and lower extremities. Normal speech. Toes are down- going bilaterally. Gait is normal without ataxia. PSYCHIATRIC: Cooperative. Good eye contact. Appropriate mood and affect. Moderate Sedation - Procedure Monitoring Vital Signs: Procedure Monitoring Vital Signs Temperature 98.6 F 09/19/18 17:44 Pulse Rate 78 09/19/18 17:44 Respiratory Rate 18 09/19/18 17:44 Blood Pressure 107/58 L 09/19/18 17:44 O2 Sat by Pulse Oximetry (%) 98 09/19/18 17:44 *DC/Admit/Observation/Transfer Diagnosis at time of Disposition: Headache Qualifiers: Headache type: unspecified Headache chronicity pattern: acute headache Intractability: not intractable Qualified Code(s): R51 - Headache - Discharge Dispostion Disposition: HOME Condition at time of disposition: Stable Decision to Admit order: No - Prescriptions Prescriptions: Acetaminophen/Caffeine/Butalb [Fioricet -] 1 tablet PO TID #10 tablet MDD 3 - Referrals Referrals: Cj Maldonado DO [Staff Physician] - - Patient Instructions Printed Discharge Instructions: DI for Headache Additional Instructions: You have a headache. Please take the fioricet as directed as needed for pain Drink plenty of water Follow up with neurology. A referral has been provided Return to the ED for worsening headache, fever, dizziness, or if you have any changes in your symptoms - Post Discharge Activity Forms/Work/School Notes: Back to Work
[2018-09-19] MEDS ORDERED: KETOROLAC TROMETHAMINE 60 MG/2 ML VIAL IM ONE (18:37)
[2018-09-19] MEDS ORDERED: ONDANSETRON *ODT* 4 MG TABLET SL ONE (18:37)
[2018-09-19] MEDS ORDERED: KETOROLAC TROMETHAMINE 60 MG/2 ML VIAL ONE (18:51)
[2018-09-19] MEDS ORDERED: ONDANSETRON *ODT* 4 MG TABLET ONE (18:51)
== END 2018-09-19 19:39 | disposition home or self-care (01) ==
LOC: JERFT 17:33
PROC: 3E0233Z Introduction of Anti-inflammatory into Muscle, Percutaneous Approach (ICD-10-PCS; principal; 2018-09-19)
DX: R51 Headache (principal); J45.909 Unspecified asthma, uncomplicated; Z85.41 Personal history of malignant neoplasm of cervix uteri; Z98.84 Bariatric surgery status
CPT/HCPCS: 99281-25; Q0162

== ENCOUNTER 2019-09-27 10:19 | Emergency (ER) | payer OTHER ==
[2019-09-27 10:39] VITALS: TEMP 97.9; BMI 30.8
[2019-09-27] MEDS ORDERED: ALBUTEROL SO4 2.5/IPRATROPIUM 0.5 INH SOL 3 ML VIAL.NEB. NEB ONE ×3 (11:06→13:47)
[2019-09-27] MEDS ORDERED: SODIUM CHLORIDE 1,000 ML IV STA ×2 (11:11→12:46)
[2019-09-27] MEDS ORDERED: methylPREDNISolone NA SUCC 125 MG/2 ML VIAL IVPB ONE (11:11)
[2019-09-27] MEDS: ALBUTEROL SO4 2.5/IPRATROPIUM 0.5 INH SOL 3 ML VIAL.NEB. NEB SCH ×3 (11:20→11:45)
[2019-09-27] MEDS ORDERED: methylPREDNISolone NA SUCC 125 MG/2 ML VIAL ONE (11:22)
--- NOTE | 2019-09-27 11:23 | PDOC ---
Documentation entered by Evon Brock SCRIBE, acting as scribe for Tamera Mcintyre MD. Tamera Mcintyre MD: This documentation has been prepared by the Vinod jessica Nirvannie, SCRIBE, under my direction and personally reviewed by me in its entirety. I confirm that the documentation accurately reflects all work, treatment, procedures, and medical decision making performed by me. History of Present Illness - General Chief Complaint: Asthma Stated Complaint: ASTHMA / COLD SYMPTOMS Time Seen by Provider: 09/27/19 10:51 History Source: Patient Exam Limitations: No Limitations - History of Present Illness Initial Comments: 34 yo F history asthma, tubal ligation presents with wheezing, difficulty breathing x5 days. She states she had a high fever 5 days ago, lasting 2 days. Currently afebrile, but continues to have dry hacking cough, chest tightness and discomfort, SOB. Denies leg swelling, fever. Past History - Past Medical History Allergies/Adverse Reactions: Allergies Allergy/AdvReac Type Severity Reaction Status Date / Time shellfish derived Allergy Mild Verified 09/27/19 11:58 Penicillins Allergy Swelling Verified 09/27/19 11:58 Home Medications: Ambulatory Orders Montelukast Na [Singulair -] 10 mg PO HS tablet 10/25/17 Salmeterol/Fluticasone [Advair 500Mcg/50Mcg -] 1 inh PO BID #1 diskus 10/25/17 Albuterol Sulfate Inhaler - [Ventolin HFA Inhaler -] 1 - 2 inh PO Q4H PRN #1 inhaler 11/20/17 Albuterol Sulfate Inhaler - [Ventolin HFA Inhaler -] 1 - 2 inh PO Q4H #1 inhaler 09/27/19 Azithromycin [Zithromax 250mg Tablets -] 250 mg PO UTDICT #6 tab 09/27/19 predniSONE [Deltasone -] 40 mg PO DAILY #10 tablet 09/27/19 Anemia: No Asthma: Yes Cancer: Yes (Cervical -on remission) Cardiac Disorders: No CVA: No COPD: No CHF: No Dementia: No Diabetes: No GI Disorders: No Disorders: No HTN: No Hypercholesterolemia: No Liver Disease: No Seizures: No Thyroid Disease: No - Surgical History Abdominal Surgery: Yes (gastric sleeve,leap) Appendectomy: No Cardiac Surgery: No Cholecystectomy: No GI Surgery: Yes (GASTRIC SLEEVE) Lung Surgery: No Neurologic Surgery: No Orthopedic Surgery: No - Reproductive History Cervical CA: No Ectopic : No Polycystic Ovaries: No Spontaneous : 5 - Immunization History Immunization Up to Date: Yes - Psycho Social/Smoking Cessation Hx Smoking Status: No Smoking History: Never smoked Have you smoked in the past 12 months: No Number of Cigarettes Smoked Daily: 0 Information on smoking cessation initiated: No Hx Alcohol Use: No Drug/Substance Use Hx: No Substance Use Type: None Hx Substance Use Treatment: No Review of Systems - Review of Systems Able to Perform ROS?: Yes Comments:: GENERAL/CONSTITUTIONAL: No fever or chills. No weakness. HEAD, EYES, EARS, NOSE AND THROAT: No change in vision. No ear pain or discharge. No sore throat. CARDIOVASCULAR: +Chest discomfort, +shortness of breath. RESPIRATORY: +Cough. No wheezing or hemoptysis. GASTROINTESTINAL: No nausea, vomiting, diarrhea or constipation. GENITOURINARY: No dysuria, frequency, or change in urination. MUSCULOSKELETAL: No joint or muscle swelling or pain. No neck or back pain. SKIN: No rash. NEUROLOGIC: No headache, vertigo, loss of consciousness, or change in strength/ sensation. ENDOCRINE: No increased thirst. No abnormal weight change. HEMATOLOGIC/LYMPHATIC: No anemia, easy bleeding, or history of blood clots. ALLERGIC/IMMUNOLOGIC: No hives or skin allergy. *Physical Exam - Vital Signs Last Vital Signs Temp Pulse Resp BP Pulse Ox 97.9 F 72 16 116/80 95 09/27/19 10:34 09/27/19 10:34 09/27/19 10:34 09/27/19 10:34 09/27/19 10:34 - Physical Exam GENERAL: Awake, alert, and fully oriented, in no acute distress HEAD: No signs of trauma EYES: PERRLA, EOMI, sclera anicteric, conjunctiva clear ENT: Auricles normal inspection, hearing grossly normal, nares with thick discharge B/L, oropharynx clear without exudates. Dry mucosa NECK: Normal ROM, supple, no lymphadenopathy, JVD, or masses LUNGS: Dec air entry B/L, no wheezes. +Prolonged exp phase HEART: Regular rate and rhythm, normal S1 and S2, no murmurs, rubs or gallops ABDOMEN: Soft, nontender, normoactive bowel sounds. No guarding, no rebound. No masses EXTREMITIES: Normal range of motion, no edema. No clubbing or cyanosis. No cords, erythema, or tenderness NEUROLOGICAL: Cranial nerves II through XII grossly intact. Normal speech, normal gait. Motor and sensation intact SKIN: Warm, dry, normal turgor, no rashes or lesions noted. ED Treatment Course - LABORATORY CBC & Chemistry Diagram: 09/27/19 11:15 09/27/19 11:15 - RADIOLOGY Radiology Studies Ordered: Category Date Time Status CHEST PA & LAT [RAD] Stat Radiology 09/27/19 11:11 Ordered Medical Decision Making - Medical Decision Making 09/27/19 11:21 Pt with asthma exacerbation with URI symptoms. Etiology is likely viral. Will give IV fluids, as she appears slightly dehydrated. Will give steroids, nebs, and check CBC/CMP. Likely DC home once she improves. 09/27/19 13:52 Pt reassessed. Appears improved from prior assessment, however, noted to have wheezing. Moving air much better than before. Will give 4th neb and PO challenge. Likely DC home after. Discharge - Discharge Information Problems reviewed: Yes Clinical Impression/Diagnosis: Asthma Qualifiers: Asthma severity: unspecified severity Asthma persistence: unspecified Asthma complication type: with acute exacerbation Qualified Code(s): J45.901 - Unspecified asthma with (acute) exacerbation Condition: Stable Disposition: HOME - Admission No - Additional Discharge Information Prescriptions: Albuterol Sulfate Inhaler - [Ventolin HFA Inhaler -] 1 - 2 inh PO Q4H #1 inhaler Azithromycin [Zithromax 250mg Tablets -] 250 mg PO UTDICT #6 tab predniSONE [Deltasone -] 40 mg PO DAILY #10 tablet - Follow up/Referral Referrals: Milton Campbell MD [Primary Care Provider] - - Patient Discharge Instructions Patient Printed Discharge Instructions: Asthma -- Adult - Post Discharge Activity
[2019-09-27 11:29] LABS: BASO % 0.2 % (0-2.0); EOS % 0.5 % (0-4.5); HEMOGLOBIN 11.6 GM/dL (10.7-15.3); LYMPH % 19.6 % (8-40); MCH 30.5 pg (25.7-33.7); MEAN CELL VOLUME 89.7 fl (80-96); MEAN PLT VOLUME 8.6 fl (7.5-11.1); MONO % 6.5 % (3.8-10.2); NEUT % 73.2 % (42.8-82.8); PLATELET COUNT 201 K/MM3 (134-434); RBC 3.79 M/mm3 (3.60-5.2); RDW 12.8 % (11.6-15.6); WHITE BLOOD COUNT 5.9 K/mm3 (4.0-10.0)
[2019-09-27 12:34] LABS: ALBUMIN 3.4 g/dl (3.4-5.0); BILIRUBIN,TOTAL 0.5 mg/dL (0.2-1); BLOOD UREA NITROGEN 12.5 mg/dL (7-18); CALCIUM 8.5 mg/dL (8.5-10.1); CREATININE 0.7 mg/dL (0.55-1.3); POTASSIUM 3.3 mmol/L (3.5-5.1); TOT PROT 6.2 g/dl (6.4-8.2)
[2019-09-27 13:42] VITALS: BP 123/78; PULSE 89
[2019-09-27] MEDS ORDERED: KETOROLAC TROMETHAMINE 30 MG/1 ML VIAL IVPUSH ONE (14:25)
[2019-09-27] MEDS ORDERED: KETOROLAC TROMETHAMINE 30 MG/1 ML VIAL ONE (14:28)
== END 2019-09-27 15:05 | disposition home or self-care (01) ==
LOC: JER 10:19
PROC: 3E0F7GC Introduction of Other Therapeutic Substance into Respiratory Tract, Via Natural or Artificial Opening (ICD-10-PCS; principal; 2019-09-27)
PROC: 3E0F7GC Introduction of Other Therapeutic Substance into Respiratory Tract, Via Natural or Artificial Opening (ICD-10-PCS; 2019-09-27)
PROC: 3E0333Z Introduction of Anti-inflammatory into Peripheral Vein, Percutaneous Approach (ICD-10-PCS; 2019-09-27)
PROC: 3E0333Z Introduction of Anti-inflammatory into Peripheral Vein, Percutaneous Approach (ICD-10-PCS; 2019-09-27)
DX: J45.901 Unspecified asthma with (acute) exacerbation (principal); J06.9 Acute upper respiratory infection, unspecified; Z88.0 Allergy status to penicillin; Z91.013 Allergy to seafood
CPT/HCPCS: 36415; 71046-TC-FY; 80053; 85025; 94640; 96374; 96375; 99283-25; J7030

== ENCOUNTER 2021-03-08 07:58 | Emergency (ER) | payer OTHER ==
[2021-03-08 08:14] VITALS: BP 140/70; PULSE 74; TEMP 97.9; BMI 31.8
[2021-03-08 08:55] LABS: BASO % 0.9 % (0-2.0); EOS % 5.8 % (0-4.5); HEMATOCRIT 35.9 % (32.4-45.2); HEMOGLOBIN 12.2 GM/dl (10.7-15.3); LYMPH % 24.7 % (8-40); MCH 31.6 pg (25.7-33.7); MEAN CELL VOLUME 92.9 fl (80-96); MEAN PLT VOLUME 8.7 fl (7.5-11.1); MONO % 7.2 % (3.8-10.2); NEUT % 61.4 % (42.8-82.8); PLATELET COUNT 217 10^3/uL (134-434); RBC 3.87 M/mm3 (3.60-5.2); RDW 12.7 % (11.6-15.6); WHITE BLOOD COUNT 4.1 K/mm3 (4.0-10.8)
[2021-03-08 09:03] LABS: ALBUMIN 3.7 g/dl (3.4-5.0); BILIRUBIN,TOTAL 0.6 mg/dl (0.2-1); CALCIUM 8.5 mg/dl (8.5-10); CREATININE 0.7 mg/dl (0.55-1.3); TOT PROT 6.2 g/dl (6.4-8.2)
[2021-03-08 09:24] LABS: EPITHELIAL CELLS RARE /hpf
== END 2021-03-08 09:40 | disposition home or self-care (01) ==
LOC: FER 07:58
DX: R42 Dizziness and giddiness (principal)
CPT/HCPCS: 36415; 80053; 81003; 81015; 84443; 84703; 85025; 93005; 99284-25

== ENCOUNTER 2021-04-01 14:49 | Emergency (ER) | payer OTHER ==
[2021-04-01 15:02] VITALS: BP 118/76; PULSE 75; TEMP 97.9; BMI 33.6
[2021-04-01] MEDS ORDERED: SODIUM CHLORIDE 0.9% 500 ML INFUS.BAG IV ONE (15:46)
[2021-04-01 17:05] LABS: BASO % 0.7 % (0-2.0); EOS % 5.5 % (0-4.5); HEMATOCRIT 35.6 % (32.4-45.2); LYMPH % 20.6 % (8-40); MCH 30.8 pg (25.7-33.7); MCHC 33.6 g/dl (32.0-36.0); MEAN CELL VOLUME 91.6 fl (80-96); MEAN PLT VOLUME 9.4 fl (7.5-11.1); NEUT % 67.2 % (42.8-82.8); PLATELET COUNT 207 10^3/uL (134-434); RBC 3.89 M/mm3 (3.60-5.2)
[2021-04-01 17:19] LABS: EPI CELLS 12 /uL (0-25.1); HYALINE CASTS 1 /uL (0-3.1); PH,URINE 7.5 (5.0-8.0); URINE APPEARANCE CLEAR; URINE BACTERIA 97 /uL (0-1359); URINE BILIRUBIN NEGATIVE (NEGATIVE); URINE COLOR YELLOW; URINE GLUCOSE (UA) NEGATIVE (NEGATIVE); URINE KETONE TRACE (NEGATIVE); URINE LEUK ESTERASE TRACE (NEGATIVE); URINE NITRITE NEGATIVE (NEGATIVE); URINE PROTEIN NEGATIVE (NEGATIVE); URINE RBC 1058 /uL (0-23.9); URINE WBC 24 /uL (0-25.8)
[2021-04-01 17:32] LABS: CHLORIDE 112 mmol/L (98-107); SODIUM 145 mmol/L (136-145)
[2021-04-01 17:34] LABS: ALBUMIN 3.4 g/dl (3.4-5.0); CALCIUM 8.1 mg/dL (8.5-10.1)
[2021-04-01 17:35] LABS: ANION GAP 6 MMOL/L (8-16); BLOOD UREA NITROGEN 12.8 mg/dL (7-18); CO2 28 mmol/L (21-32); GLUCOSE,RANDOM 90 mg/dL (74-106)
[2021-04-01 17:38] LABS: CREATININE 0.7 mg/dL (0.55-1.3); SGOT/AST 15 U/L (15-37); SGPT/ALT 22 U/L (13-61)
[2021-04-01 17:39] LABS: BILIRUBIN,TOTAL 0.3 mg/dL (0.2-1); TOT PROT 6.3 g/dl (6.4-8.2)
[2021-04-01 17:40] LABS: ALK PHOS 97 U/L (45-117)
[2021-04-01 17:40] LABS: INR 1.11 (0.83-1.09); PROTHROMBIN TIME (PATIENT) 13.6 SEC (9.7-13.0)
[2021-04-01 17:43] LABS: ACTIVATED PTT 28.8 SECONDS (25.2-36.5)
== END 2021-04-01 18:20 | disposition home or self-care (01) ==
LOC: JER 14:49
DX: R00.2 Palpitations (principal)
CPT/HCPCS: 36415; 71046-TC-FY; 80053; 81003; 84484; 85025; 85610; 85730; 87086; 93005; 93010; 99285-25

== ENCOUNTER 2021-04-20 07:53 | Day surgery (SDC) | payer OTHER ==
[2021-04-15 13:00] VITALS: BMI 33.5
[2021-04-20] MEDS ORDERED: BUPIVACAINE HCL/EPINEPHRINE/PF 30 ML VIAL IJ ONE (08:06)
[2021-04-20] MEDS ORDERED: PROPOFOL 20 ML ONE ×2 (09:00)
[2021-04-20] MEDS ORDERED: MIDAZOLAM HCL 2 MG/2 ML SINGLE DOSE VIAL ONE (09:00)
[2021-04-20] MEDS ORDERED: SUCCINYLCHOLINE CHLORIDE 200 MG/10 ML SYRINGE ONE (09:00)
[2021-04-20] MEDS ORDERED: DEXAMETHASONE SOD PHOSPHATE 4 MG/1 ML VIAL ONE (09:01)
[2021-04-20] MEDS ORDERED: LIDOCAINE HCL 2% JELLY (5 ML/TUBE) ONE (09:01)
[2021-04-20] MEDS ORDERED: LIDOCAINE HCL/PF 2% SDV 5ML VIAL ONE (09:01)
[2021-04-20] MEDS ORDERED: ONDANSETRON 4 MG/2 ML VIAL ONE (09:01)
[2021-04-20] MEDS ORDERED: ceFAZolin SODIUM 1 GM VIAL ONE (09:01)
[2021-04-20] MEDS ORDERED: KETOROLAC TROMETHAMINE 30 MG/1 ML VIAL ONE (09:01)
[2021-04-20] MEDS ORDERED: BUPIVACAINE 0.25% /EPI 1:200,000 10 ML VIAL INF ONE (09:59)
[2021-04-20] MEDS ORDERED: ONDANSETRON 4 MG/2 ML VIAL IVPUSH PRN (10:09)
[2021-04-20] MEDS ORDERED: oxyCODONE HCL 5 MG TABLET PO PRN ×2 (10:09)
[2021-04-20] MEDS ORDERED: PROMETHAZINE HCL 25 MG/1 ML VIAL IVPUSH PRN (10:09)
[2021-04-20] MEDS ORDERED: PROMETHAZINE HCL 25 MG/1 ML VIAL IVPB PRN (10:12)
[2021-04-20 10:34] VITALS: TEMP 98.1
[2021-04-20 11:02] VITALS: BP 100/62; PULSE 68
== END 2021-04-20 11:03 | disposition home or self-care (01) ==
LOC: FASU 07:53
PROVIDERS: ATTEND Orthopaedic Surgery
PROC: 0JBD0ZZ Excision of Right Upper Arm Subcutaneous Tissue and Fascia, Open Approach (ICD-10-PCS; principal; 2021-04-20 09:37)
DX: D17.21 Benign lipomatous neoplasm of skin and subcutaneous tissue of right arm (principal)
CPT/HCPCS: 84703

== ENCOUNTER 2021-04-28 21:01 | Emergency (ER) | payer OTHER ==
[2021-04-28 21:14] VITALS: TEMP 97.9; BMI 32.8
[2021-04-28 23:12] LABS: BASO % 0.6 % (0-2.0); WHITE BLOOD COUNT 5.4 K/mm3 (4.0-10.0)
[2021-04-28 23:14] LABS: EOS % 5.9 % (0-4.5); HEMATOCRIT 35.1 % (32.4-45.2); HEMOGLOBIN 11.8 GM/dL (10.7-15.3); MCH 30.8 pg (25.7-33.7); MCHC 33.6 g/dl (32.0-36.0); MEAN CELL VOLUME 91.6 fl (80-96); MONO % 6.9 % (3.8-10.2); NEUT % 62.6 % (42.8-82.8); PLATELET COUNT 276 10^3/uL (134-434); RBC 3.83 M/mm3 (3.60-5.2); RDW 13.3 % (11.6-15.6)
[2021-04-28 23:15] LABS: EPI CELLS 16 /uL (0-25.1); HYALINE CASTS 2 /uL (0-3.1); PH,URINE 5.5 (5.0-8.0); URINE APPEARANCE CLEAR; URINE BACTERIA 165 /uL (0-1359); URINE BILIRUBIN NEGATIVE (NEGATIVE); URINE COLOR YELLOW; URINE GLUCOSE (UA) NEGATIVE (NEGATIVE); URINE KETONE NEGATIVE (NEGATIVE); URINE LEUK ESTERASE TRACE (NEGATIVE); URINE NITRITE NEGATIVE (NEGATIVE); URINE PROTEIN NEGATIVE (NEGATIVE); URINE RBC 310 /uL (0-23.9); URINE WBC 35 /uL (0-25.8)
[2021-04-28 23:29] LABS: CHLORIDE 113 mmol/L (98-107); SODIUM 143 mmol/L (136-145)
[2021-04-28 23:32] LABS: BLOOD UREA NITROGEN 12.8 mg/dL (7-18); CALCIUM 8.1 mg/dL (8.5-10.1)
[2021-04-28 23:33] LABS: ALBUMIN 3.4 g/dl (3.4-5.0); ANION GAP 3 MMOL/L (8-16); CO2 27 mmol/L (21-32); GLUCOSE,RANDOM 90 mg/dL (74-106); MAGNESIUM 2.3 mg/dL (1.8-2.4)
[2021-04-28 23:36] LABS: CREATININE 0.7 mg/dL (0.55-1.3); PHOSPHOROUS 3.7 mg/dL (2.5-4.9); SGOT/AST 11 U/L (15-37); SGPT/ALT 26 U/L (13-61)
[2021-04-28 23:37] LABS: ALK PHOS 98 U/L (45-117)
[2021-04-29 00:22] VITALS: BP 128/92; PULSE 62
[2021-04-29 00:31] LABS: BILIRUBIN,TOTAL 0.3 mg/dL (0.2-1); TOT PROT 7.2 g/dl (6.4-8.2)
== END 2021-04-29 00:22 | disposition home or self-care (01) ==
LOC: JER 21:01
DX: R00.2 Palpitations (principal)
CPT/HCPCS: 36415; 80053; 81003; 82962; 83735; 84100; 84443; 84484; 85025; 87086; 93005; 93010; 99284-25; C9803; U0003; U0005

== ENCOUNTER 2021-06-02 18:50 | Emergency (ER) | payer OTHER ==
[2021-06-02 19:05] VITALS: BP 123/88; PULSE 64; TEMP 98.2; BMI 35.4
== END 2021-06-02 19:23 | disposition home or self-care (01) ==
LOC: JERFT 18:50
DX: J01.90 Acute sinusitis, unspecified (principal); Z11.52 Encounter for screening for COVID-19
CPT/HCPCS: 99283-25; C9803; U0003; U0005

== ENCOUNTER 2021-06-24 19:47 | Emergency (ER) | payer OTHER ==
[2021-06-24 19:59] VITALS: BP 122/77; PULSE 64; TEMP 98.4; BMI 35.4
[2021-06-24 20:11] LABS: HCG,QUALITATIVE URINE Negative
[2021-06-24 20:19] LABS: URIC ACID CRYSTALS FEW /hpf (NONE SEEN)
[2021-06-24] MEDS ORDERED: SODIUM CHLORIDE 1,000 ML ONE (20:19)
[2021-06-24] MEDS ORDERED: ONDANSETRON 4 MG/2 ML VIAL IVPUSH ONE (20:19)
[2021-06-24] MEDS ORDERED: KETOROLAC TROMETHAMINE 30 MG/1 ML VIAL IVPUSH ONE (20:19)
[2021-06-24] MEDS ORDERED: ONDANSETRON 4 MG/2 ML VIAL ONE (20:25)
[2021-06-24] MEDS ORDERED: KETOROLAC TROMETHAMINE 30 MG/1 ML VIAL ONE (20:25)
[2021-06-24 20:45] LABS: BASO % 1.5 % (0-2.0); EOS % 7.1 % (0-4.5); HEMATOCRIT 36.3 % (32.4-45.2); HEMOGLOBIN 12.3 GM/dl (10.7-15.3); LYMPH % 27.9 % (8-40); MCH 31.3 pg (25.7-33.7); MCHC 33.8 g/dl (32.0-36.0); MEAN CELL VOLUME 92.4 fl (80-96); MEAN PLT VOLUME 8.6 fl (7.5-11.1); MONO % 6.8 % (3.8-10.2); NEUT % 56.7 % (42.8-82.8); PLATELET COUNT 258 10^3/uL (134-434); RBC 3.93 M/mm3 (3.60-5.2); RDW 12.7 % (11.6-15.6); WHITE BLOOD COUNT 5.1 K/mm3 (4.0-10.8)
[2021-06-24 20:54] LABS: ALBUMIN 3.9 g/dl (3.4-5.0); BILIRUBIN,TOTAL 0.5 mg/dl (0.2-1); CALCIUM 8.9 mg/dl (8.5-10); CREATININE 0.7 mg/dl (0.55-1.3); TOT PROT 6.5 g/dl (6.4-8.2)
== END 2021-06-24 22:32 | disposition home or self-care (01) ==
LOC: FER 19:47
PROC: 3E0333Z Introduction of Anti-inflammatory into Peripheral Vein, Percutaneous Approach (ICD-10-PCS; principal; 2021-06-24)
PROC: 3E033GC Introduction of Other Therapeutic Substance into Peripheral Vein, Percutaneous Approach (ICD-10-PCS; 2021-06-24)
PROC: 3E0337Z Introduction of Electrolytic and Water Balance Substance into Peripheral Vein, Percutaneous Approach (ICD-10-PCS; 2021-06-24)
DX: M54.50 Low back pain, unspecified (principal)
CPT/HCPCS: 36415; 74176-TC; 80053; 81003; 81015; 84703; 85025; 96361; 96374; 96375; 99284-25

== ENCOUNTER 2021-09-07 18:21 | Observation (INO) | payer OTHER ==
[2021-09-07] MEDS ORDERED: ALBUTEROL SO4 2.5/IPRATROPIUM 0.5 INH SOL 3 ML VIAL.NEB. NEB ONE ×2 (18:55→21:05)
[2021-09-07] MEDS ORDERED: DEXAMETHASONE SOD PHOSPHATE 10 MG/1 ML VIAL ONE (18:55)
[2021-09-07] MEDS ORDERED: DEXAMETHASONE 4 MG TABLET (FP) PO ONE (20:18)
[2021-09-07] MEDS ORDERED: DEXAMETHASONE LIQUID 0.5 MG/5 ML PO ONE (20:18)
[2021-09-07] MEDS ORDERED: MAGNESIUM SULF 50% (8.12 MEQ/2 ML-1 GM VIAL) IVPB ONE (21:09)
[2021-09-07] MEDS ORDERED: MAGNESIUM SULFATE IN WATER 2 GM/50 ML IVPB IVPB ONE (21:13)
[2021-09-07] MEDS: ALBUTEROL SO4 2.5/IPRATROPIUM 0.5 INH SOL 3 ML VIAL.NEB. NEB SCH ×2 (21:14→21:15)
[2021-09-07 21:59] LABS: BASO % 0.3 % (0-2.0); EOS % 1.9 % (0-4.5); HEMOGLOBIN 12.9 GM/dL (10.7-15.3); MEAN CELL VOLUME 91.1 fl (80-96); MEAN PLT VOLUME 8.5 fl (7.5-11.1); MONO % 2.3 % (3.8-10.2); NEUT % 87.5 % (42.8-82.8); PLATELET COUNT 252 10^3/uL (134-434); RBC 4.28 M/mm3 (3.60-5.2); RDW 13.5 % (11.6-15.6); WHITE BLOOD COUNT 9.6 K/mm3 (4.0-10.0)
[2021-09-07 22:20] LABS: CHLORIDE 111 mmol/L (98-107); SODIUM 143 mmol/L (136-145)
[2021-09-07 22:23] LABS: ALBUMIN 3.9 g/dl (3.4-5.0); ANION GAP 7 MMOL/L (8-16); BLOOD UREA NITROGEN 13.6 mg/dL (7-18); CALCIUM 8.9 mg/dL (8.5-10.1); CO2 25 mmol/L (21-32); GLUCOSE,RANDOM 130 mg/dL (74-106)
[2021-09-07 22:26] LABS: CREATININE 0.7 mg/dL (0.55-1.3); SGOT/AST 11 U/L (15-37); SGPT/ALT 24 U/L (13-61)
[2021-09-07 22:27] LABS: LDH 220 U/L (84-246)
[2021-09-07 22:28] LABS: BILIRUBIN,TOTAL 0.4 mg/dL (0.2-1); TOT PROT 6.8 g/dl (6.4-8.2)
[2021-09-07 22:29] LABS: ALK PHOS 99 U/L (45-117)
[2021-09-08] MEDS ORDERED: ALBUTEROL SO4 2.5/IPRATROPIUM 0.5 INH SOL 3 ML VIAL.NEB. NEB ONE ×2 (01:10→07:43)
[2021-09-08] MEDS ORDERED: methylPREDNISolone NA SUCC 40 MG/1 ML VIAL ONE (01:10)
[2021-09-08] MEDS: methylPREDNISolone NA SUCC 40 MG/1 ML VIAL IVPUSH SCH ×2 (02:00→11:01)
[2021-09-08] MEDS: BUDESONIDE/FORMETEROL FUMARATE 160/4.5 mcg INHALER IH SCH ×2 (05:39→22:48)
[2021-09-08] MEDS: ALBUTEROL SO4 2.5/IPRATROPIUM 0.5 INH SOL 3 ML VIAL.NEB. NEB SCH ×3 (07:58→20:00)
[2021-09-08 08:50] LABS: BASO % 0.2 % (0-2.0); EOS % 0.2 % (0-4.5); HEMATOCRIT 39.5 % (32.4-45.2); HEMOGLOBIN 13.1 GM/dL (10.7-15.3); LYMPH % 8.9 % (8-40); MCH 30.2 pg (25.7-33.7); MCHC 33.1 g/dl (32.0-36.0); MEAN PLT VOLUME 9.7 fl (7.5-11.1); NEUT % 89.7 % (42.8-82.8); PLATELET COUNT 251 10^3/uL (134-434); RBC 4.34 M/mm3 (3.60-5.2); RDW 13.4 % (11.6-15.6)
[2021-09-08 09:18] LABS: ALBUMIN 3.8 g/dl (3.4-5.0); CALCIUM 8.9 mg/dL (8.5-10.1)
[2021-09-08 09:19] LABS: BLOOD UREA NITROGEN 13.6 mg/dL (7-18); MAGNESIUM 2.2 mg/dL (1.8-2.4)
[2021-09-08 09:21] LABS: PHOSPHOROUS 2.2 mg/dL (2.5-4.9)
[2021-09-08 09:22] LABS: CREATININE 0.9 mg/dL (0.55-1.3)
[2021-09-08 09:23] LABS: BILIRUBIN,TOTAL 0.4 mg/dL (0.2-1); TOT PROT 6.9 g/dl (6.4-8.2)
[2021-09-08] MEDS ORDERED: AZITHROMYCIN IVPB 500 MG in DEXTROSE 5%-WATER - 250 ML IVPB SCH (10:00)
[2021-09-08] MEDS: ENOXAPARIN NA (PORCINE) 40 MG/0.4 ML DISP.SYRIN SQ SCH (12:05)
[2021-09-08 14:55] VITALS: BMI 35.9
[2021-09-08 17:22] LABS: EPI CELLS 14 /uL (0-25.1); HYALINE CASTS 1 /uL (0-3.1); PH,URINE 5.5 (5.0-8.0); URINE APPEARANCE CLOUDY; URINE BACTERIA 174 /uL (0-1359); URINE BILIRUBIN NEGATIVE (NEGATIVE); URINE COLOR YELLOW; URINE GLUCOSE (UA) NEGATIVE (NEGATIVE); URINE KETONE TRACE (NEGATIVE); URINE LEUK ESTERASE TRACE (NEGATIVE); URINE NITRITE NEGATIVE (NEGATIVE); URINE PROTEIN 1+ (NEGATIVE); URINE RBC 4513 /uL (0-23.9); URINE WBC 41 /uL (0-25.8)
[2021-09-08] MEDS ORDERED: PT OWN MED DRAWER 7, Y5N ONE ×2 (21:12→22:45)
[2021-09-08] MEDS: MONTELUKAST NA 5 MG TAB.CHEW PO SCH (22:43)
[2021-09-09] MEDS ORDERED: BENZOCAINE/MENTH/CETYLPYRD CL 1 EACH LOZENGE MM ONE (05:06)
[2021-09-09] MEDS ORDERED: guaiFENesin 200 MG/10 ML 10 ML UNIT-DOSE CUPS PO ONE (05:06)
[2021-09-09] MEDS ORDERED: guaiFENesin 200 MG/10 ML 10 ML UNIT-DOSE CUPS PO PRN (05:07)
[2021-09-09] MEDS ORDERED: BENZOCAINE/MENTH/CETYLPYRD CL 1 EACH LOZENGE MM PRN (05:07)
[2021-09-09 06:05] LABS: CHLORIDE 113 mmol/L (98-107); SODIUM 143 mmol/L (136-145)
[2021-09-09 06:07] LABS: BLOOD UREA NITROGEN 18.3 mg/dL (7-18); CALCIUM 8.6 mg/dL (8.5-10.1)
[2021-09-09 06:08] LABS: ALBUMIN 3.4 g/dl (3.4-5.0); ANION GAP 6 MMOL/L (8-16); CO2 24 mmol/L (21-32); GLUCOSE,RANDOM 111 mg/dL (74-106)
[2021-09-09] MEDS: ALBUTEROL SO4 2.5/IPRATROPIUM 0.5 INH SOL 3 ML VIAL.NEB. NEB SCH ×5 (06:09→19:56)
[2021-09-09 06:10] LABS: SGPT/ALT 21 U/L (13-61)
[2021-09-09 06:11] LABS: CREATININE 0.8 mg/dL (0.55-1.3); PHOSPHOROUS 3.8 mg/dL (2.5-4.9); SGOT/AST 7 U/L (15-37)
[2021-09-09 06:12] LABS: BILIRUBIN,TOTAL 0.4 mg/dL (0.2-1); TOT PROT 6.1 g/dl (6.4-8.2)
[2021-09-09 06:13] LABS: ALK PHOS 87 U/L (45-117)
[2021-09-09] MEDS ORDERED: PT OWN MED DRAWER 7, Y5N ONE ×3 (08:45→20:52)
[2021-09-09] MEDS: methylPREDNISolone NA SUCC 40 MG/1 ML VIAL IVPUSH SCH (09:05)
[2021-09-09] MEDS: BUDESONIDE/FORMETEROL FUMARATE 160/4.5 mcg INHALER IH SCH ×2 (09:05→21:03)
[2021-09-09] MEDS: ENOXAPARIN NA (PORCINE) 40 MG/0.4 ML DISP.SYRIN SQ SCH (09:05)
[2021-09-09 09:45] LABS: HEMATOCRIT 35.7 % (32.4-45.2); MCH 30.5 pg (25.7-33.7); MCHC 33.5 g/dl (32.0-36.0); MEAN CELL VOLUME 91.1 fl (80-96); MEAN PLT VOLUME 9.1 fl (7.5-11.1); PLATELET COUNT 218 10^3/uL (134-434); RBC 3.92 M/mm3 (3.60-5.2); RDW 13.7 % (11.6-15.6)
[2021-09-09] MEDS: guaiFENesin 200 MG/10 ML 10 ML UNIT-DOSE CUPS PO PRN (12:34)
[2021-09-09] MEDS: MONTELUKAST NA 5 MG TAB.CHEW PO SCH (21:04)
[2021-09-10] MEDS: ALBUTEROL SO4 2.5/IPRATROPIUM 0.5 INH SOL 3 ML VIAL.NEB. NEB SCH ×4 (07:45→20:03)
[2021-09-10] MEDS: ENOXAPARIN NA (PORCINE) 40 MG/0.4 ML DISP.SYRIN SQ SCH (09:17)
[2021-09-10] MEDS: methylPREDNISolone NA SUCC 40 MG/1 ML VIAL IVPUSH SCH (09:17)
[2021-09-10] MEDS: guaiFENesin 200 MG/10 ML 10 ML UNIT-DOSE CUPS PO PRN ×2 (09:20→22:04)
[2021-09-10 09:38] LABS: HEMATOCRIT 37.6 % (32.4-45.2); HEMOGLOBIN 12.3 GM/dL (10.7-15.3); MCH 29.9 pg (25.7-33.7); MCHC 32.8 g/dl (32.0-36.0); MEAN CELL VOLUME 91.2 fl (80-96); PLATELET COUNT 236 10^3/uL (134-434); RBC 4.13 M/mm3 (3.60-5.2); RDW 13.8 % (11.6-15.6); WHITE BLOOD COUNT 7.5 K/mm3 (4.0-10.0)
[2021-09-10 10:13] LABS: ALBUMIN 3.6 g/dl (3.4-5.0); BLOOD UREA NITROGEN 14.9 mg/dL (7-18)
[2021-09-10 10:16] LABS: BILIRUBIN,TOTAL 0.3 mg/dL (0.2-1); CREATININE 0.6 mg/dL (0.55-1.3); TOT PROT 6.4 g/dl (6.4-8.2)
[2021-09-10 10:22] LABS: MAGNESIUM 2.2 mg/dL (1.8-2.4)
[2021-09-10] MEDS ORDERED: MONTELUKAST NA 10 MG TABLET PO SCH (11:03)
[2021-09-10] MEDS: ACETAMINOPHEN 325 MG TABLET (FP) PO PRN (18:32)
[2021-09-10] MEDS: BUDESONIDE/FORMETEROL FUMARATE 160/4.5 mcg INHALER IH SCH (22:04)
[2021-09-11 05:30] VITALS: TEMP 97.7
[2021-09-11] MEDS: ALBUTEROL SO4 2.5/IPRATROPIUM 0.5 INH SOL 3 ML VIAL.NEB. NEB SCH ×3 (08:10→16:41)
[2021-09-11] MEDS ORDERED: PT OWN MED DRAWER 7, Y5N ONE (09:08)
[2021-09-11] MEDS: ACETAMINOPHEN 325 MG TABLET (FP) PO PRN (09:10)
[2021-09-11] MEDS: guaiFENesin 200 MG/10 ML 10 ML UNIT-DOSE CUPS PO PRN (09:12)
[2021-09-11] MEDS: ENOXAPARIN NA (PORCINE) 40 MG/0.4 ML DISP.SYRIN SQ SCH (09:16)
[2021-09-11] MEDS: BUDESONIDE/FORMETEROL FUMARATE 160/4.5 mcg INHALER IH SCH (09:17)
[2021-09-11 09:27] LABS: HEMATOCRIT 38.9 % (32.4-45.2); HEMOGLOBIN 12.7 GM/dL (10.7-15.3); MCH 30.2 pg (25.7-33.7); MCHC 32.7 g/dl (32.0-36.0); MEAN CELL VOLUME 92.1 fl (80-96); MEAN PLT VOLUME 9.1 fl (7.5-11.1); PLATELET COUNT 223 10^3/uL (134-434); RBC 4.22 M/mm3 (3.60-5.2); RDW 13.3 % (11.6-15.6); WHITE BLOOD COUNT 6.9 K/mm3 (4.0-10.0)
[2021-09-11 09:42] VITALS: PULSE 92
[2021-09-11] MEDS ORDERED: predniSONE 20 MG TABLET (UD) PO SCH (10:00)
[2021-09-11] MEDS ORDERED: MULTIVITAMINS (DAILY MVI) TABLET (FP) PO SCH (10:00)
[2021-09-11] MEDS ORDERED: CALCIUM 250MG/VIT-D 125 UNITS 1 COMBO TABLET PO SCH (10:00)
[2021-09-11] MEDS ORDERED: ZINC SULFATE 220 MG CAPSULE (FP) PO SCH (10:00)
[2021-09-11 10:07] LABS: CALCIUM 8.7 mg/dL (8.5-10.1)
[2021-09-11 10:08] LABS: ALBUMIN 3.4 g/dl (3.4-5.0); BLOOD UREA NITROGEN 15.7 mg/dL (7-18)
[2021-09-11 10:11] VITALS: BP 128/92
[2021-09-11 10:11] LABS: CREATININE 0.8 mg/dL (0.55-1.3); PHOSPHOROUS 3.8 mg/dL (2.5-4.9)
[2021-09-11 10:12] LABS: TOT PROT 6.3 g/dl (6.4-8.2)
[2021-09-11 10:13] LABS: BILIRUBIN,TOTAL 0.3 mg/dL (0.2-1)
== END 2021-09-11 17:44 | disposition home or self-care (01) ==
LOC: JERFT 18:21 → JER 18:21 → INTOOBSV 22:50 → JERBED 22:50 → J6S 09-08 11:55
PROVIDERS: ADMIT Internal Medicine; ATTEND Internal Medicine
PROC: 3E0F7GC Introduction of Other Therapeutic Substance into Respiratory Tract, Via Natural or Artificial Opening (ICD-10-PCS; principal; 2021-09-07)
PROC: 3E023GC Introduction of Other Therapeutic Substance into Muscle, Percutaneous Approach (ICD-10-PCS; 2021-09-07)
PROC: 3E033GC Introduction of Other Therapeutic Substance into Peripheral Vein, Percutaneous Approach (ICD-10-PCS; 2021-09-07)
DX: J45.901 Unspecified asthma with (acute) exacerbation (principal); J96.01 Acute respiratory failure with hypoxia; E66.8 Other obesity; Z68.36 Body mass index [BMI] 36.0-36.9, adult; Z88.0 Allergy status to penicillin; Z91.018 Allergy to other foods; Z29.9 Encounter for prophylactic measures, unspecified; R07.89 Other chest pain; D64.9 Anemia, unspecified; Z85.41 Personal history of malignant neoplasm of cervix uteri; Z98.84 Bariatric surgery status; Z86.16 Personal history of COVID-19; F17.210 Nicotine dependence, cigarettes, uncomplicated
CPT/HCPCS: 36415; 70551-TC; 71046-TC-FY; 72125-TC; 80053; 81003; 82550; 82728; 83036; 83615; 83735; 84100; 84484; 84703; 85025; 85027; 86140; 87804; 87807; 93005; 93010; 94150; 94640; 94761; 96372; 96374; 99285-25; C9803-CS; G0378; U0003; U0005

== ENCOUNTER 2021-12-23 12:01 | Emergency (ER) | payer OTHER ==
[2021-12-23 12:12] VITALS: BP 120/70; PULSE 57; TEMP 97.4; BMI 33.6
[2021-12-23] MEDS ORDERED: SODIUM CHLORIDE 0.9% 500 ML INFUS.BAG IV ONE (12:33)
[2021-12-23] MEDS ORDERED: ONDANSETRON 4 MG/2 ML VIAL IVPUSH ONE (12:34)
[2021-12-23] MEDS ORDERED: FAMOTIDINE 20 MG/50 ML IVPB 20 MG/50 ML MG IVPB ONE (12:34)
[2021-12-23] MEDS ORDERED: ONDANSETRON 4 MG/2 ML VIAL ONE (12:49)
[2021-12-23] MEDS ORDERED: FAMOTIDINE 10 MG/ML VIAL IVPB ONE (12:50)
[2021-12-23 12:56] LABS: PH,URINE 6.5 (5.0-8.0); URINE APPEARANCE CLEAR; URINE BILIRUBIN NEGATIVE (NEGATIVE); URINE COLOR YELLOW; URINE GLUCOSE (UA) NEGATIVE (NEGATIVE); URINE KETONE TRACE (NEGATIVE); URINE LEUK ESTERASE NEGATIVE (NEGATIVE); URINE NITRITE NEGATIVE (NEGATIVE); URINE PROTEIN NEGATIVE (NEGATIVE); URINE UROBILINOGEN 0.2 mg/dL (0.2-1.0)
[2021-12-23 13:02] LABS: HCG,QUALITATIVE URINE Negative
[2021-12-23 13:41] LABS: BASO % 0.6 % (0-2.0); EOS % 7.8 % (0-4.5); HEMATOCRIT 35.3 % (32.4-45.2); HEMOGLOBIN 11.9 GM/dL (10.7-15.3); LYMPH % 23.6 % (8-40); MCH 30.9 pg (25.7-33.7); MCHC 33.8 g/dl (32.0-36.0); MEAN CELL VOLUME 91.4 fl (80-96); MEAN PLT VOLUME 8.4 fl (7.5-11.1); MONO % 6.5 % (3.8-10.2); NEUT % 61.5 % (42.8-82.8); PLATELET COUNT 224 10^3/uL (134-434); RBC 3.86 M/mm3 (3.60-5.2); RDW 13.4 % (11.6-15.6)
[2021-12-23 14:12] LABS: ALBUMIN 3.5 g/dl (3.4-5.0); CALCIUM 8.9 mg/dL (8.5-10.1)
[2021-12-23 14:13] LABS: BLOOD UREA NITROGEN 11.3 mg/dL (7-18)
[2021-12-23 14:15] LABS: CREATININE 0.7 mg/dL (0.55-1.3)
[2021-12-23 14:17] LABS: BILIRUBIN,TOTAL 0.4 mg/dL (0.2-1); TOT PROT 6.3 g/dl (6.4-8.2)
== END 2021-12-23 16:52 | disposition home or self-care (01) ==
LOC: JER 12:01
PROC: 3E033GC Introduction of Other Therapeutic Substance into Peripheral Vein, Percutaneous Approach (ICD-10-PCS; principal; 2021-12-23)
DX: R11.10 Vomiting, unspecified (principal); R19.7 Diarrhea, unspecified
CPT/HCPCS: 36415; 76705-TC; 80053; 81003; 83690; 84703; 85025; 87086; 96365; 96375; 99284-25

== ENCOUNTER 2022-02-24 06:38 | Emergency (ER) | payer OTHER ==
[2022-02-24] MEDS ORDERED: ALBUTEROL SO4 2.5/IPRATROPIUM 0.5 INH SOL 3 ML VIAL.NEB. NEB ONE (06:51)
[2022-02-24 06:56] VITALS: BMI 33.5
[2022-02-24] MEDS ORDERED: methylPREDNISolone NA SUCC 125 MG/2 ML VIAL IVPUSH ONE (08:11)
[2022-02-24] MEDS ORDERED: methylPREDNISolone NA SUCC 125 MG/2 ML VIAL ONE (08:17)
[2022-02-24 09:22] LABS: BASO % 0.4 % (0-2.0); EOS % 8.1 % (0-4.5); HEMATOCRIT 37.7 % (32.4-45.2); HEMOGLOBIN 12.9 GM/dL (10.7-15.3); LYMPH % 24.2 % (8-40); MCH 30.9 pg (25.7-33.7); MCHC 34.1 g/dl (32.0-36.0); MEAN CELL VOLUME 90.5 fl (80-96); MONO % 5.3 % (3.8-10.2); PLATELET COUNT 178 10^3/uL (134-434); RBC 4.17 M/mm3 (3.60-5.2); WHITE BLOOD COUNT 4.6 K/mm3 (4.0-10.0)
[2022-02-24 09:31] LABS: VENOUS BASE EXCESS -3.1 mmol/L (-2-2); VENOUS O2 SATURATION 55.5 % (70-80); VENOUS PCO2 40.7 mmHg (38-52); VENOUS PH 7.354 (7.310-7.410)
[2022-02-24 09:48] LABS: CALCIUM 8.8 mg/dL (8.5-10.1)
[2022-02-24 09:49] LABS: ALBUMIN 3.6 g/dl (3.4-5.0); BLOOD UREA NITROGEN 13.8 mg/dL (7-18)
[2022-02-24 09:54] LABS: BILIRUBIN,TOTAL 0.5 mg/dL (0.2-1); CREATININE 0.7 mg/dL (0.55-1.3)
[2022-02-24 11:33] LABS: PH,URINE 6.5 (5.0-8.0); URINE APPEARANCE CLEAR; URINE BILIRUBIN NEGATIVE (NEGATIVE); URINE COLOR YELLOW; URINE GLUCOSE (UA) NEGATIVE (NEGATIVE); URINE KETONE 1+ (NEGATIVE); URINE LEUK ESTERASE NEGATIVE (NEGATIVE); URINE NITRITE NEGATIVE (NEGATIVE); URINE PROTEIN NEGATIVE (NEGATIVE)
[2022-02-24 12:54] VITALS: BP 123/94; PULSE 81
== END 2022-02-24 12:45 | disposition home or self-care (01) ==
LOC: JER 06:38
PROC: 3E033GC Introduction of Other Therapeutic Substance into Peripheral Vein, Percutaneous Approach (ICD-10-PCS; principal; 2022-02-24)
DX: J45.41 Moderate persistent asthma with (acute) exacerbation (principal)
CPT/HCPCS: 0241U-QW; 36415; 71045-TC-FY; 80053; 81003; 82803; 84484; 85025; 86850; 86900; 86901; 87086; 93005; 93010; 96374; 99285-25

== ENCOUNTER 2022-03-22 07:55 | Day surgery (SDC) | payer OTHER ==
[2022-03-22] MEDS ORDERED: FERRIC CARBOXYMALTOSE 750 MG in SODIUM CHLORIDE 250 ML IVPB ONE (10:45)
[2022-03-22] MEDS ORDERED: CYANOCOBALAMIN (VITAMIN B-12) 1000 MCG/1 ML VIAL IM ONE (15:55)
[2022-03-22 16:13] VITALS: BP 143/71; PULSE 82; TEMP 98.4
== END 2022-03-22 16:15 | disposition home or self-care (01) ==
LOC: JONCNONCHE 07:55
PROVIDERS: ATTEND Internal Medicine Hematology & Oncology
PROC: 3E013GC Introduction of Other Therapeutic Substance into Subcutaneous Tissue, Percutaneous Approach (ICD-10-PCS; principal; 2022-03-22)
DX: D50.9 Iron deficiency anemia, unspecified (principal); Z76.89 Persons encountering health services in other specified circumstances
CPT/HCPCS: 84703; 96372

== ENCOUNTER 2022-06-01 19:32 | Emergency (ER) | payer OTHER ==
[2022-06-01 19:40] VITALS: BP 138/76; PULSE 70; RESP 18; TEMP 98.1; BMI 34.0
== END 2022-06-01 21:48 | disposition home or self-care (01) ==
LOC: JER 19:32
DX: B34.9 Viral infection, unspecified (principal)
CPT/HCPCS: 0241U-QW; 99283-25

== ENCOUNTER 2022-08-25 08:36 | Emergency (ER) | payer OTHER ==
[2022-08-25 08:42] VITALS: BP 157/87; PULSE 72; RESP 20; TEMP 98; BMI 37.2
[2022-08-25] MEDS ORDERED: SODIUM CHLORIDE 1,000 ML IV STA (08:50)
[2022-08-25] MEDS ORDERED: ALBUTEROL SO4 2.5/IPRATROPIUM 0.5 INH SOL 3 ML VIAL.NEB. NEB ONE (09:02)
[2022-08-25] MEDS: ALBUTEROL SO4 2.5/IPRATROPIUM 0.5 INH SOL 3 ML VIAL.NEB. NEB SCH ×4 (09:45→10:18)
[2022-08-25 10:28] LABS: BASO % 0.8 % (0-2.0); EOS % 8.8 % (0-4.5); HEMOGLOBIN 13.6 GM/dL (10.7-15.3); MCH 29.7 pg (25.7-33.7); MCHC 32.4 g/dl (32.0-36.0); MEAN CELL VOLUME 91.7 fl (80-96); MEAN PLT VOLUME 8.2 fl (7.5-11.1); MONO % 5.6 % (3.8-10.2); NEUT % 63.8 % (42.8-82.8); PLATELET COUNT 255 10^3/uL (134-434); RBC 4.59 M/mm3 (3.60-5.2); RDW 13.6 % (11.6-15.6); WHITE BLOOD COUNT 6.4 K/mm3 (4.0-10.0)
[2022-08-25 10:30] LABS: PH,URINE 6.5 (5.0-8.0); URINE APPEARANCE CLEAR; URINE BILIRUBIN NEGATIVE (NEGATIVE); URINE COLOR YELLOW; URINE GLUCOSE (UA) NEGATIVE (NEGATIVE); URINE KETONE NEGATIVE (NEGATIVE); URINE LEUK ESTERASE NEGATIVE (NEGATIVE); URINE NITRITE NEGATIVE (NEGATIVE); URINE PROTEIN NEGATIVE (NEGATIVE)
[2022-08-25 10:35] LABS: HCG,QUALITATIVE URINE Negative
[2022-08-25 10:52] LABS: ALBUMIN 3.8 g/dl (3.4-5.0); CALCIUM 9.1 mg/dL (8.5-10.1)
[2022-08-25 10:55] LABS: CREATININE 0.8 mg/dL (0.55-1.3)
[2022-08-25 10:57] LABS: BILIRUBIN,TOTAL 0.5 mg/dL (0.2-1); TOT PROT 6.7 g/dl (6.4-8.2)
[2022-08-25] MEDS ORDERED: predniSONE 20 MG TABLET (UD) PO ONE (11:43)
[2022-08-25] MEDS ORDERED: predniSONE 20 MG TABLET (UD) ONE (12:08)
== END 2022-08-25 12:22 | disposition home or self-care (01) ==
LOC: JER 08:36
PROC: 3E0F7GC Introduction of Other Therapeutic Substance into Respiratory Tract, Via Natural or Artificial Opening (ICD-10-PCS; principal; 2022-08-25)
PROC: 3E0337Z Introduction of Electrolytic and Water Balance Substance into Peripheral Vein, Percutaneous Approach (ICD-10-PCS; 2022-08-25)
DX: R53.1 Weakness (principal); R09.81 Nasal congestion; R06.02 Shortness of breath
CPT/HCPCS: 36415; 71046-TC-FY; 80053; 81003; 83036; 84443; 84703; 85025; 87086; 93005; 93010; 94640; 96361; 99285-25

== ENCOUNTER 2022-10-02 14:01 | Emergency (ER) | payer OTHER ==
[2022-10-02 14:10] VITALS: BP 103/72; PULSE 79; RESP 17; TEMP 98.4; BMI 35.0
[2022-10-02] MEDS ORDERED: DEXAMETHASONE SOD PHOSPHATE 10 MG/1 ML VIAL IM ONE (15:15)
[2022-10-02] MEDS ORDERED: KETOROLAC TROMETHAMINE 30 MG/1 ML VIAL IM ONE (15:15)
[2022-10-02] MEDS ORDERED: MAG HYDROX/AL HYDROX/SIMETH 30 ML UNIT-DOSE CUP PO ONE (15:15)
[2022-10-02] MEDS ORDERED: FAMOTIDINE 20 MG TABLET PO ONE (15:15)
[2022-10-02] MEDS ORDERED: KETOROLAC TROMETHAMINE 30 MG/1 ML VIAL ONE (15:23)
[2022-10-02] MEDS ORDERED: MAG HYDROX/AL HYDROX/SIMETH 30 ML UNIT-DOSE CUP ONE (15:24)
[2022-10-02] MEDS ORDERED: DEXAMETHASONE SOD PHOSPHATE 10 MG/1 ML VIAL ONE (15:24)
[2022-10-02] MEDS ORDERED: FAMOTIDINE 20 MG TABLET ONE (15:24)
== END 2022-10-02 16:03 | disposition home or self-care (01) ==
LOC: JERFT 14:01
PROC: 3E023GC Introduction of Other Therapeutic Substance into Muscle, Percutaneous Approach (ICD-10-PCS; principal; 2022-10-02)
DX: R07.0 Pain in throat (principal)
CPT/HCPCS: 0241U-QW; 87651; 96372; 99284-25; J1100

== ENCOUNTER 2022-10-27 13:05 | Day surgery (SDC) | payer OTHER ==
[2022-10-27] MEDS ORDERED: FERRIC CARBOXYMALTOSE 750 MG in SODIUM CHLORIDE 250 ML IVPB ONE (14:00)
[2022-10-27 15:34] VITALS: RESP 18; TEMP 97.8
[2022-10-27 15:38] VITALS: BP 93/47; PULSE 67
== END 2022-10-27 14:55 | disposition home or self-care (01) ==
LOC: JONCNONCHE 13:05
PROVIDERS: ATTEND Specialist
PROC: 3E033GC Introduction of Other Therapeutic Substance into Peripheral Vein, Percutaneous Approach (ICD-10-PCS; principal; 2022-10-27)
DX: D50.9 Iron deficiency anemia, unspecified (principal)
CPT/HCPCS: 96365; J1439

== ENCOUNTER 2023-01-01 13:41 | Emergency (ER) | payer OTHER ==
[2023-01-01 13:59] VITALS: RESP 18; TEMP 97.7; BMI 37.2
[2023-01-01 16:05] LABS: BASO % 0.6 % (0-2.0); HEMOGLOBIN 13.6 GM/dL (10.7-15.3); LYMPH % 18.8 % (8-40); MCH 31.9 pg (25.7-33.7); MCHC 34.8 g/dl (32.0-36.0); MEAN CELL VOLUME 91.7 fl (80-96); MEAN PLT VOLUME 8.5 fl (7.5-11.1); MONO % 5.5 % (3.8-10.2); NEUT % 71.1 % (42.8-82.8); PLATELET COUNT 220 10^3/uL (134-434); RBC 4.25 M/mm3 (3.60-5.2); RDW 13.5 % (11.6-15.6); WHITE BLOOD COUNT 6.1 K/mm3 (4.0-10.0)
[2023-01-01 16:12] LABS: INR 1.02 (0.83-1.09); PROTHROMBIN TIME (PATIENT) 11.8 SEC (9.7-13.0)
[2023-01-01 16:15] LABS: ACTIVATED PTT 32.4 SECONDS (25.2-36.5)
[2023-01-01 16:24] LABS: POTASSIUM 4.1 mmol/L (3.5-5.1)
[2023-01-01 16:25] LABS: CALCIUM 8.9 mg/dL (8.5-10.1)
[2023-01-01 16:27] LABS: ALBUMIN 3.7 g/dl (3.4-5.0); BLOOD UREA NITROGEN 11.3 mg/dL (7-18)
[2023-01-01 16:30] LABS: CREATININE 0.7 mg/dL (0.55-1.3)
[2023-01-01 16:31] LABS: BILIRUBIN,TOTAL 0.4 mg/dL (0.2-1); TOT PROT 6.5 g/dl (6.4-8.2)
[2023-01-01] MEDS ORDERED: KETOROLAC TROMETHAMINE 15 MG/ML VIAL IVPUSH ONE (17:13)
[2023-01-01] MEDS ORDERED: KETOROLAC TROMETHAMINE 15 MG/ML VIAL ONE (17:49)
[2023-01-01 19:05] VITALS: BP 137/85; PULSE 82
[2023-01-04 05:06] LABS: ANTI-DNAse B 184 U/mL (0-120)
== END 2023-01-01 20:31 | disposition home or self-care (01) ==
LOC: JER 13:41
PROC: 3E0333Z Introduction of Anti-inflammatory into Peripheral Vein, Percutaneous Approach (ICD-10-PCS; principal; 2023-01-01)
DX: R07.9 Chest pain, unspecified (principal); M94.0 Chondrocostal junction syndrome [Tietze]; R20.2 Paresthesia of skin; Z20.822 Contact with and (suspected) exposure to COVID-19
CPT/HCPCS: 36415; 71046-TC-FY; 80053; 84443; 84484; 84703; 85025; 85379; 85597; 85610; 85730; 86038; 86146; 86147; 86215; 86225; 86235; 93005; 93010; 99285-25

== ENCOUNTER 2023-10-21 13:59 | Emergency (ER) | payer BC, OTHER ==
[2023-10-21 14:06] VITALS: BP 134/81; PULSE 94; RESP 18; TEMP 98.7; BMI 40.7
== END 2023-10-21 15:35 | disposition home or self-care (01) ==
LOC: JER 13:59 → JERFT 13:59
DX: R09.81 Nasal congestion (principal); R51.9 Headache, unspecified; R07.89 Other chest pain; J01.90 Acute sinusitis, unspecified; Z20.822 Contact with and (suspected) exposure to COVID-19
CPT/HCPCS: 0241U-QW; 99283-25

== ENCOUNTER 2023-10-29 09:15 | Emergency (ER) | payer BC ==
[2023-10-29 09:42] VITALS: BP 107/61; PULSE 61; RESP 18; TEMP 98; BMI 40.7
[2023-10-29] MEDS ORDERED: KETOROLAC TROMETHAMINE 30 MG/1 ML VIAL ONE (10:33)
[2023-10-29] MEDS: KETOROLAC TROMETHAMINE 15 MG/ML VIAL IM ONE (10:37)
== END 2023-10-29 11:01 | disposition home or self-care (01) ==
LOC: JERFT 09:15
PROC: 3E0233Z Introduction of Anti-inflammatory into Muscle, Percutaneous Approach (ICD-10-PCS; principal; 2023-10-29)
DX: R52 Pain, unspecified (principal); R51.9 Headache, unspecified; R11.0 Nausea; R09.81 Nasal congestion; R05.9 Cough, unspecified; R63.0 Anorexia; R19.7 Diarrhea, unspecified; B34.9 Viral infection, unspecified; J32.9 Chronic sinusitis, unspecified; Z20.822 Contact with and (suspected) exposure to COVID-19
CPT/HCPCS: 0241U-QW; 99284-25